=== PATIENT | female | born 1985 | race Caucasian/White ===

== ENCOUNTER 2017-09-23 17:29 | Inpatient (IN) ==
[2017-09-23 18:03] LABS: Bilirubin,Urine Small (Negative); Blood,Urine Negative (Negative); Clarity,Urine Cloudy (Clear); Color,Urine Dark Yellow (Yellow); Glucose,Urine (UA) Normal (Normal); Ketones,Urine Trace mg/dL (Negative); Leukocyte Esterase,Urine Small (Negative); Nitrite,Urine Negative (Negative); PH,Urine 5.5 pH Units (5.0-8.0); Protein,Urine Trace mg/dL (Neg-Trace); Specific Gravity,Urine > 1.030 (1.010-1.025); Urobilinogen,Urine Normal (Normal)
[2017-09-23 18:05] LABS: Amphetamine Screen,Urine Negative ng/mL (Cutoff=1000); Barbiturate Screen,Urine Negative ng/mL (Cutoff=200); Benzodiazepines Screen,Urine Negative ng/mL (Cutoff=200); Cannabinoid Screen,Urine Negative ng/mL (Cutoff = 50); Cocaine Screen,Urine Negative ng/mL (Cutoff= 300); Opiate Screen,Urine Negative ng/mL (Cutoff=300); Phencyclidine Screen,Urine Negative ng/mL (Cutoff=25)
[2017-09-23 18:06] LABS: Squamous Epithelial Cell,Urine Many per lpf (None-Few); WBC,Urine 15-30 per hpf (0-3)
[2017-09-23 18:20] LABS: Bacteria,Urine Moderate per hpf (None-Few); Hyaline Casts,Urine None Seen per lpf (None-Few); Mucus,Urine Many (Few); RBC,Urine 0-3 per hpf (0-3)
--- NOTE | 2017-09-23 18:21 | Emergency Department Note ---
Disposition Clinical Impression: Suicidal ideation Depression Qualifiers: Depression Type: unspecified Qualified Code(s): F32.9 - Major depressive disorder, single episode, unspecified Disposition: Admitted As Inpatient Condition: Good Referrals: NONE,PCP [Primary Care Provider] - Forms: ED Satisfaction Letter Time of Disposition: 21:27 Psych HPI - General Chief Complaint: ED Psychiatric Symptoms Stated Complaint: SI Time Seen by Provider: 09/23/17 18:07 Source: patient Mode of arrival: ambulatory Limitations: no limitations Nursing Notes Reviewed: Yes Vital Signs Reviewed: Yes - History of Present Illness HPI Narrative: 31-year-old with history of depression says she is very depressed feel like she wants to harm herself. Patient has a history of seizures and stopped her seizure medication because her significant other felt that symptoms of aggression and depression were related to meds. Pt complaint: suicidal ideation, feels depressed If medical clearance, reason: psychiatric condition Onset (ago): Just [employer] Duration: constant History of similar episodes: Yes Improves with: none Worsens with: none Context: significant life stressor Alleged intoxication: No Associated Psychiatric Symptoms: depression, suicidal ideation Associated symptoms: Reports: denies other symptoms Traumatic symptoms: denies traumatic injury Treatments prior to arrival: none Self harm or harm to others: admits thoughts of self harm - Related Data Home Medications Medication Instructions Recorded Confirmed Ativan 09/14/17 Topamax 09/14/17 09/14/17 Allergies Allergy/AdvReac Type Severity Reaction Status Date / Time Amoxicillin Allergy Hives Verified 09/23/17 17:34 Cyclobenzaprine Allergy Itching Verified 09/23/17 17:34 [From Flexeril] hydrocodone [From Vicodin] Allergy See Verified 09/23/17 17:34 Comments iodine Allergy Hives Verified 09/23/17 17:34 lorazepam [From Ativan] Allergy Seizure Verified 09/23/17 17:34 Oxycodone [From Percocet] Allergy See Verified 09/23/17 17:34 Comments Penicillins Allergy Anaphylaxis Verified 09/23/17 17:34 povidone-iodine Allergy Hives Verified 09/23/17 17:34 [From Betadine] soap [From Betadine] Allergy Hives Verified 09/23/17 17:34 Raw egg Allergy Hives Uncoded 09/23/17 17:34 All systems ED: reviewed and negative except as stated. Constitutional: Denies: fever, chills, weakness, weight change Eyes: Denies: eye pain, eye discharge, vision change ENT ED: Denies: ear pain, throat pain, dental pain, hearing loss, epistaxis, congestion, dysphagia Cardiovascular: Denies: chest pain, palpitations, dyspnea on exertion, edema, syncope Respiratory: Denies: cough, dyspnea, wheezes, hemoptysis, stridor Gastrointestinal: Denies: abdominal pain, nausea, vomiting, diarrhea, constipation, hematemesis, melena, hematochezia Genitourinary: Denies: dysuria, frequency, hematuria, discharge Musculoskeletal: Denies: back pain, neck pain, arthralgia, myalgia Integumentary: Denies: rash, abrasion, lesions Neurological: Denies: headache, weakness, numbness, paresthesias, confusion, abnormal gait, vertigo Psychiatric: Reports: depression, suicidal thoughts. Denies: anxiety, homicidal thoughts, auditory hallucinations, visual hallucinations Endocrine: Denies: fatigue Hematological/Lymphatic: Denies: easy bleeding, easy bruising Allergic/Immunologic: Denies: facial swelling, urticaria Past Medical History - Past Medical History Medical history: Reports: migraine, seizures Surgical history: Reports: Psychiatric history: Reports: anxiety, ADHD, bipolar, depression, panic disorder , PTSD, prior suicide attempt, previous psychiatric hospitalization, other [employer] history: Reports: bilateral tubal ligation - Social History Smoking Status: Current every day smoker Smokeless Tobacco Status: No Alcohol use: Reports: none Drug use: Reports: none Physical Exam - General Limitations: no limitations General appearance: alert, in no apparent distress - Head Head exam: atraumatic, normocephalic, normal inspection - Eye Eye exam: Present: normal appearance, PERRL, EOMI - ENT ENT exam: normal exam, normal oropharynx, mucous membranes moist - Neck Neck exam: Present: normal inspection, full ROM, trachea midline - Chest Chest inspection: Present: normal inspection, symmetric chest wall rise - Respiratory Respiratory exam: Present: normal lung sounds bilaterally - Cardiovascular Cardiovascular exam: Present: regular rate, normal rhythm, normal heart sounds - Abdominal Exam Abdominal exam: Present: soft, Non-Tender. Absent: tenderness, distention, guarding, rebound, rigidity - Extremities Exam Extremities exam: Present: normal inspection, full ROM. Absent: tenderness, pedal edema - Expanded Lower Extremity Exam Neurovascular/Tendon exam: Absent: motor deficit, sensory deficit, tendon deficit Gait: observed and normal - Back Exam Back exam: Present: normal inspection, full ROM. Absent: tenderness - Neurological Exam Neurological exam: Present: alert, oriented X3 - Psychiatric Psychiatric exam: Present: depressed, agitated, suicidal ideation - Skin Skin exam: Present: warm, dry, intact, normal color Course - Consultations Consultation #1: Consultation with psychiatry who feels the patient should be admitted. Time: 21:26 Vital Signs Temperature 98.4 F 09/23/17 17:31 Pulse Rate 85 09/23/17 17:31 Respiratory Rate 16 09/23/17 17:31 Blood Pressure 119/77 09/23/17 17:31 O2 Sat by Pulse Oximetry 100 09/23/17 17:31 Temperature 98.4 F 09/23/17 17:31 Pulse Rate 85 09/23/17 17:31 Respiratory Rate 16 09/23/17 17:31 Blood Pressure 119/77 09/23/17 17:31 O2 Sat by Pulse Oximetry 100 09/23/17 17:31 Oxygen Delivery Oxygen Delivery Room Air Psych - Lab Data Result diagrams: 09/23/17 18:21 09/23/17 18:21 Lab Results 09/23/17 09/23/17 09/23/17 Range/Units 17:45 17:45 18:21 WBC 10.1 (4.3-11.1) K/mcL RBC 4.15 (3.82-4.97) M/mcL Hgb 12.7 (11.5-15.4) g/dL Hct 38.3 (35.3-44.9) % MCV 92.3 (83.0-100.0) fL MCH 30.6 (28.0-33.3) pg MCHC 33.2 (31.6-35.5) g/dL RDW 12.1 (11.5-14.5) % Plt Count 295 (140-400) K/mcL MPV 9.8 (9.4-12.4) fL Immature Gran % 0.3 (0-4) % Seg Neutrophils % 68.3 % Lymphocytes % 25.1 % Monocytes % 5.5 % Eosinophils % 0.4 % Basophils % 0.4 % Neutrophils # 6.9 (1.6-8.9) K/mcL Lymphocytes # 2.5 (0.6-4.6) K/mcL Monocytes # 0.6 (0.0-1.3) K/mcL Eosinophils # 0.0 (0.0-0.6) K/mcL Basophils # 0.0 (0.0-0.2) K/mcL Sodium (136-145) mEq/L Potassium (3.5-5.1) mEq/L Chloride (98-107) mEq/L Carbon Dioxide (23-29) mEq/L BUN (6-20) mg/dL Creatinine (0.60-1.20) mg/dL Est GFR ( Amer) (> 60) Est GFR (Non-Af Amer) (> 60) BUN/Creatinine Ratio (6-26) Glucose (70-105) mg/dL Calculated Osmolality (280-300) Calcium (8.6-10.3) mg/dL Urine Color Dark Yellow (Yellow) Urine Clarity Cloudy A (Clear) Urine pH 5.5 (5.0-8.0) pH Units Ur Specific [place] > 1.030 H (1.010-1.025) Urine Protein Trace (Neg-Trace) mg/dL Urine Glucose (UA) Normal (Normal) mg/dL Urine Ketones Trace H (Negative) mg/dL Urine Blood Negative (Negative) Urine Nitrite Negative (Negative) Urine Bilirubin Small H (Negative) Urine Urobilinogen Normal (Normal) mg/dL Ur Leukocyte Esterase Small H (Negative) Urine Microscopic RBC 0-3 (0-3) per hpf Urine Microscopic WBC 15-30 H (0-3) per hpf Ur Squamous Epith Cells Many H (None-Few) per lpf Urine Bacteria Moderate H (None-Few) per hpf Hyaline Casts None Seen (None-Few) per lpf Urine Mucus Many H (Few) Ur Culture Indicated? NO. (NO) Salicylates (15.0-30.0) mg/dL Urine Opiates Screen Negative (Ycpdpb=506) ng/mL Acetaminophen (10-30) mcg/mL Ur Barbiturates Screen Negative (Pqoazf=415) ng/mL Ur Phencyclidine Scrn Negative (Cutoff=25) ng/mL Ur Amphetamines Screen Negative (Debgtm=3697) ng/mL U Benzodiazepines Scrn Negative (Rhxjhi=319) ng/mL Urine Cocaine Screen Negative (Cutoff= 300) ng/mL U Marijuana (THC) Screen Negative (Cutoff = 50) ng/mL Ethyl Alcohol (0-10) mg/dL 09/23/17 Range/Units 18:21 WBC (4.3-11.1) K/mcL RBC (3.82-4.97) M/mcL Hgb (11.5-15.4) g/dL Hct (35.3-44.9) % MCV (83.0-100.0) fL MCH (28.0-33.3) pg MCHC (31.6-35.5) g/dL RDW (11.5-14.5) % Plt Count (140-400) K/mcL MPV (9.4-12.4) fL Immature Gran % (0-4) % Seg Neutrophils % % Lymphocytes % % Monocytes % % Eosinophils % % Basophils % % Neutrophils # (1.6-8.9) K/mcL Lymphocytes # (0.6-4.6) K/mcL Monocytes # (0.0-1.3) K/mcL Eosinophils # (0.0-0.6) K/mcL Basophils # (0.0-0.2) K/mcL Sodium 139 (136-145) mEq/L Potassium 3.3 L (3.5-5.1) mEq/L Chloride 107 (98-107) mEq/L Carbon Dioxide 25 (23-29) mEq/L BUN 10 (6-20) mg/dL Creatinine 0.78 (0.60-1.20) mg/dL Est GFR ( Amer) > 60 (> 60) Est GFR (Non-Af Amer) > 60 (> 60) BUN/Creatinine Ratio 13 (6-26) Glucose 82 (70-105) mg/dL Calculated Osmolality 286 (280-300) Calcium 9.3 (8.6-10.3) mg/dL Urine Color (Yellow) Urine Clarity (Clear) Urine pH (5.0-8.0) pH Units Ur Specific [place] (1.010-1.025) Urine Protein (Neg-Trace) mg/dL Urine Glucose (UA) (Normal) mg/dL Urine Ketones (Negative) mg/dL Urine Blood (Negative) Urine Nitrite (Negative) Urine Bilirubin (Negative) Urine Urobilinogen (Normal) mg/dL Ur Leukocyte Esterase (Negative) Urine Microscopic RBC (0-3) per hpf Urine Microscopic WBC (0-3) per hpf Ur Squamous Epith Cells (None-Few) per lpf Urine Bacteria (None-Few) per hpf Hyaline Casts (None-Few) per lpf Urine Mucus (Few) Ur Culture Indicated? (NO) Salicylates < 5.0 L (15.0-30.0) mg/dL Urine Opiates Screen (Iadafp=896) ng/mL Acetaminophen < 1.0 L (10-30) mcg/mL Ur Barbiturates Screen (Iqqimv=627) ng/mL Ur Phencyclidine Scrn (Cutoff=25) ng/mL Ur Amphetamines Screen (Vaoriv=3213) ng/mL U Benzodiazepines Scrn (Zilgfj=362) ng/mL Urine Cocaine Screen (Cutoff= 300) ng/mL U Marijuana (THC) Screen (Cutoff = 50) ng/mL Ethyl Alcohol < 10 (0-10) mg/dL Psychiatric Medical Clearance - Medical Clearance Checklist Does the patient have a NEW psychiatric condition?: No Any abnormalities indicating possible medical illness?: No Any history of medical issues?: No Medical History: Major depressive disorder, single episode (Acute) Abdominal pain (Inactive) Abdominal pain, acute, left lower quadrant (Inactive) Ankle sprain and strain (Inactive) Cephalgia (Inactive) Chronic pain (Inactive) Contusion of right hand (Inactive) Dysfunctional uterine bleeding (Inactive) Earache symptoms in both ears (Inactive) Epileptic seizure (Inactive) Fall due to seizure (Inactive) Generalized seizure (Inactive) Left otitis externa (Inactive) Left otitis media (Inactive) Lumbar radiculopathy (Inactive) Migraine (Inactive) Migraine (Inactive) Migraine (Inactive) Otitis media (Inactive) Ovarian cyst (Inactive) Recurrent seizures (Inactive) Rupture of ovarian cyst (Inactive) Sacral contusion (Inactive) Seizure (Inactive) Seizure (Inactive) Seizure (Inactive) Sinusitis (Inactive) Strain of lumbar region (Inactive) URI (upper respiratory infection) (Inactive) UTI (urinary tract infection) (Inactive) Urinary tract infection (Inactive) Vaginal bleeding (Inactive) No Social History Section defined Any abnormal vital signs prior to transfer?: No Current Vitals: Last Vital Signs Temp 98.4 F 09/23/17 17:31 Pulse 85 09/23/17 17:31 Resp 16 09/23/17 17:31 BP 119/77 09/23/17 17:31 Pulse Ox 100 09/23/17 17:31 Is the patient intoxicated or cognitively impaired?: No Psychiatric Lab Panel: Drug Levels and Toxicity 09/23/17 09/23/17 17:45 18:21 Urine Opiates Screen Negative Acetaminophen < 1.0 L Ur Barbiturates Screen Negative Ur Phencyclidine Scrn Negative Ur Amphetamines Screen Negative U Benzodiazepines Scrn Negative Urine Cocaine Screen Negative U Marijuana (THC) Screen Negative Ethyl Alcohol < 10 Any abnormalities on the physical exam?: No Any abnormal labs?: No Abnormal Labs: Abnormal lab results Potassium 3.3 mEq/L (3.5-5.1) L 09/23/17 18:21 Urine Clarity Cloudy (Clear) A 09/23/17 17:45 Ur Specific [place] > 1.030 (1.010-1.025) H 09/23/17 17:45 Urine Ketones Trace mg/dL (Negative) H 09/23/17 17:45 Urine Bilirubin Small (Negative) H 09/23/17 17:45 Ur Leukocyte Esterase Small (Negative) H 09/23/17 17:45 Urine Microscopic WBC 15-30 per hpf (0-3) H 09/23/17 17:45 Ur Squamous Epith Cells Many per lpf (None-Few) H 09/23/17 17:45 Urine Bacteria Moderate per hpf (None-Few) H 09/23/17 17:45 Urine Mucus Many (Few) H 09/23/17 17:45 Salicylates < 5.0 mg/dL (15.0-30.0) L 09/23/17 18:21 Acetaminophen < 1.0 mcg/mL (10-30) L 09/23/17 18:21 Does the patient require durable medical equiptment?: No Is the patient ambulatory?: Yes Is the patient a fall risk?: No Has the patient been medically cleared?: Yes Any acute medical condition require Tx prior to transfer?: No Statement of Medical Clearance: I have evaluated the patient, reviewed diagnostic information, and certify that the patient's medical condition is sufficiently stable that transfer to the psychiatric unit does not pose a significant risk of deterioration.
[2017-09-23 18:37] LABS: Basophils % 0.4 %; Eosinophils % 0.4 %; Hematocrit 38.3 % (35.3-44.9); Hemoglobin 12.7 g/dL (11.5-15.4); Immature Granulocytes % 0.3 % (0-4); Lymphocytes # 2.5 K/mcL (0.6-4.6); Lymphocytes % 25.1 %; Mean Corpuscular HGB Conc 33.2 g/dL (31.6-35.5); Mean Corpuscular Hemoglobin 30.6 pg (28.0-33.3); Mean Corpuscular Volume 92.3 fL (83.0-100.0); Mean Platelet Volume 9.8 fL (9.4-12.4); Monocytes # 0.6 K/mcL (0.0-1.3); Monocytes % 5.5 %; Neutrophils # 6.9 K/mcL (1.6-8.9); Platelet Count 295 K/mcL (140-400); Red Blood Count 4.15 M/mcL (3.82-4.97); Red Cell Distribution Width 12.1 % (11.5-14.5); Segmented Neutrophils % 68.3 %
[2017-09-23 18:51] LABS: BUN/Creatinine Ratio 13 (6-26); Blood Urea Nitrogen 10 mg/dL (6-20); Calcium 9.3 mg/dL (8.6-10.3); Carbon Dioxide 25 mEq/L (23-29); Chloride 107 mEq/L (98-107); Glucose 82 mg/dL (70-105); Osmolality,Calculated 286 (280-300); Potassium 3.3 mEq/L (3.5-5.1); Sodium 139 mEq/L (136-145); eGFR For African Americans > 60 (> 60); eGFR For Non-African Americans > 60 (> 60)
[2017-09-23 18:57] LABS: Acetaminophen < 1.0 mcg/mL (10-30); Ethanol < 10 mg/dL (0-10); Salicylate < 5.0 mg/dL (15.0-30.0)
[2017-09-23] MEDS ORDERED: traZODone 50 MG TABLET PO PRN (21:56)
[2017-09-23] MEDS ORDERED: Mag Hydrox/Al Hydrox/Simeth 30 ML UDC PO PRN (21:56)
[2017-09-23] MEDS ORDERED: MOM Conc 10 ML UD.LIQ PO PRN (21:56)
[2017-09-23] MEDS ORDERED: Haloperidol Lactate 5 MG/ML VIAL IM PRN (21:56)
[2017-09-23] MEDS ORDERED: hydrOXYzine pamoate 25 MG CAPSULE PO PRN (21:56)
[2017-09-23] MEDS: Ibuprofen 400 MG TABLET PO PRN (23:30)
[2017-09-24] MEDS: Nicotine 14 MG PATCH.TD24 TD SCH (09:53)
[2017-09-24] MEDS: levETIRAcetam 250 MG TABLET PO SCH ×2 (10:36→21:12)
[2017-09-24] MEDS: OXcarbazepine 150 MG TABLET PO SCH ×2 (10:37→21:10)
--- NOTE | 2017-09-24 15:09 | Psychiatry History & Physical ---
Date of Encounter: 09/24/17 Time of Encounter: 15:03 History of Present Illness Patient Stated Chief Complaint: suicidal ideation Medicare Admission Attestation: For traditional Medicare patients the provided hospital inpatient services are reasonable and necessary and in the case of services not specified as inpatient -only under 42 CFR 419.22 (n), that they are appropriately provided as inpatient services in accordance 42 CFR 412.3. For Critical Access Hospital the patient may reasonably be expected to be discharged or transferred to a hospital within 96 hours after admission to the Critical Access Hospital. Admitted From: Home Plans for Post Hospital Care: Home History of Present Illness: Ms. Ibrahim is a 31 year old female who was admitted secondary to SI. Client reports she has been given multiple diagnoses in the past including Bipolar Disorder, PTSD, ADHD. Has a history of post depression, bulemia, anorexia, and past suicide attempts. Previously linked with Dr. Pereira but has not been seen and no meds since he left the practice. Discussed options and client is interested in being placed back on Abilify. Had success with this medication in the past. States she is already feeling better just being here. Also recognizing she has a two year old that needs her. Denying SI today. Wants relinked with services and thinks she will be fine to follow up as an outpatient. Seems bright today. Will start Abilify, verify safety with , schedule appointments and plan for discharge as early as tomorrow. Client has no substance abuse issues and is generally physically healthy except for a history of seizures. Client is not currently on antiepileptics and seizures may be pseudoseizures as opposed to a seizure disorder. Past Med Surg Social Fam HX - Past Medical History Medical history: migraine, seizures - Past Psychiatric History Psychiatric history: Reports: prior suicide attempt, previous psychiatric hospitalization Family psychiatric history: Unknown Family History of Suicide: Unknown - Past Surgical History Surgical History: - Social History Smoking Status: Current every day smoker Smokeless Tobacco Status: No Alcohol use: none Drug use: none Medications & Allergies LevETIRAcetam [Keppra] 500 mg PO BID 09/23/17 [History] OXcarbazepine [Oxcarbazepine] 1,200 mg PO BID 09/23/17 [History] 3 Allergy/AdvReac Type Severity Reaction Status Date / Time Amoxicillin Allergy Hives Verified 09/23/17 17:34 Cyclobenzaprine Allergy Itching Verified 09/23/17 17:34 [From Flexeril] hydrocodone [From Vicodin] Allergy See Verified 09/23/17 17:34 Comments iodine Allergy Hives Verified 09/23/17 17:34 lorazepam [From Ativan] Allergy Seizure Verified 09/23/17 17:34 Oxycodone [From Percocet] Allergy See Verified 09/23/17 17:34 Comments Penicillins Allergy Anaphylaxis Verified 09/23/17 17:34 povidone-iodine Allergy Hives Verified 09/23/17 17:34 [From Betadine] soap [From Betadine] Allergy Hives Verified 09/23/17 17:34 Raw egg Allergy Hives Uncoded 09/23/17 17:34 Review of Systems Constitutional: Denies: fever, chills, weakness, weight change Eyes: Denies: eye pain, vision change Ears, Nose, Throat: Denies: ear pain, throat pain, dental pain, hearing loss, congestion Cardiovascular: Denies: chest pain, palpitations, dyspnea on exertion Respiratory: Denies: cough, dyspnea, wheezes Gastrointestinal: Denies: abdominal pain, nausea, vomiting, diarrhea, constipation Genitourinary male: Denies: urgency, dysuria, frequency, genital lesions Genitourinary female: Denies: urgency, dysuria, frequency, abnormal menses, dyspareunia Musculoskeletal: Denies: joint swelling, joint pain Integumentary: Denies: rash, lesions, pruritus Neurological: Denies: headache, weakness, numbness, memory loss Endocrine: Denies: fatigue, heat or cold intolerance Hematologic/Lymphatic: Denies: easy bruising, lymphadenopathy Allergic/Immunologic: Denies: urticaria, itchy eyes Mental Status Exam Patient orientation: Yes Person, Yes Time, Yes Place Level of alertness: Alert Patient appearance: Appropriate, Well Groomed Behavior: calm, cooperative Psychomotor activity: Normal Eye contact: Maintains Eye Contact Mood description: Euthymic/stable Affect description: congruent with mood, full range Speech pattern: Normal rate, Normal rhythm, Normal tone Speech volume: Normal Thought process: Linear, Goal Oriented Thought content: No Suicidal ideation, No Homicidal ideation, No Overt delusions Perceptual disturbances: No Auditory hallucinations, No Visual hallucinations Attention span: Capable of Focused Attention Memory description: Grossly Intact Patient reliability: Reliable Historian Intelligence estimate: Average Judgment: Limited Insight: Partial Exam - HEENT Head exam IM: Present: atraumatic Eye exam IM: Present: EOMI ENT exam IM: Present: mucous membranes moist - Neurological Neurological exam IM: Present: alert, oriented X3 - Respiratory Respiratory exam IM: Present: CTAB - GI/Abdominal GI/Abdominal exam IM: Present: normal bowel sounds - Extremities Extremities exam IM: Present: full ROM - Skin Skin exam IM: Present: normal color Results - Vital Signs Vital signs: Temp Pulse Resp BP Pulse Ox 97.8 F 87 18 97/68 100 09/24/17 09:00 09/24/17 09:00 09/24/17 09:00 09/24/17 09:00 09/23/17 17:31 - Labs Labs: Laboratory Last Values WBC 10.1 K/mcL (4.3-11.1) 09/23/17 18:21 RBC 4.15 M/mcL (3.82-4.97) 09/23/17 18:21 Hgb 12.7 g/dL (11.5-15.4) 09/23/17 18:21 Hct 38.3 % (35.3-44.9) 09/23/17 18:21 MCV 92.3 fL (83.0-100.0) 09/23/17 18:21 MCH 30.6 pg (28.0-33.3) 09/23/17 18:21 MCHC 33.2 g/dL (31.6-35.5) 09/23/17 18:21 RDW 12.1 % (11.5-14.5) 09/23/17 18:21 Plt Count 295 K/mcL (140-400) 09/23/17 18:21 MPV 9.8 fL (9.4-12.4) 09/23/17 18:21 Immature Gran % 0.3 % (0-4) 09/23/17 18:21 Seg Neutrophils % 68.3 % 09/23/17 18:21 Lymphocytes % 25.1 % 09/23/17 18:21 Monocytes % 5.5 % 09/23/17 18:21 Eosinophils % 0.4 % 09/23/17 18:21 Basophils % 0.4 % 09/23/17 18:21 Neutrophils # 6.9 K/mcL (1.6-8.9) 09/23/17 18:21 Lymphocytes # 2.5 K/mcL (0.6-4.6) 09/23/17 18:21 Monocytes # 0.6 K/mcL (0.0-1.3) 09/23/17 18:21 Eosinophils # 0.0 K/mcL (0.0-0.6) 09/23/17 18:21 Basophils # 0.0 K/mcL (0.0-0.2) 09/23/17 18:21 Sodium 139 mEq/L (136-145) 09/23/17 18:21 Potassium 3.3 mEq/L (3.5-5.1) L 09/23/17 18:21 Chloride 107 mEq/L (98-107) 09/23/17 18:21 Carbon Dioxide 25 mEq/L (23-29) 09/23/17 18:21 BUN 10 mg/dL (6-20) 09/23/17 18:21 Creatinine 0.78 mg/dL (0.60-1.20) 09/23/17 18:21 Est GFR ( Amer) > 60 (> 60) 09/23/17 18:21 Est GFR (Non-Af Amer) > 60 (> 60) 09/23/17 18:21 BUN/Creatinine Ratio 13 (6-26) 09/23/17 18:21 Glucose 82 mg/dL (70-105) 09/23/17 18:21 Calculated Osmolality 286 (280-300) 09/23/17 18:21 Calcium 9.3 mg/dL (8.6-10.3) 09/23/17 18:21 Urine Color Dark Yellow (Yellow) 09/23/17 17:45 Urine Clarity Cloudy (Clear) A 09/23/17 17:45 Urine pH 5.5 pH Units (5.0-8.0) 09/23/17 17:45 Ur Specific [place] > 1.030 (1.010-1.025) H 09/23/17 17:45 Urine Protein Trace mg/dL (Neg-Trace) 09/23/17 17:45 Urine Glucose (UA) Normal mg/dL (Normal) 09/23/17 17:45 Urine Ketones Trace mg/dL (Negative) H 09/23/17 17:45 Urine Blood Negative (Negative) 09/23/17 17:45 Urine Nitrite Negative (Negative) 09/23/17 17:45 Urine Bilirubin Small (Negative) H 09/23/17 17:45 Urine Urobilinogen Normal mg/dL (Normal) 09/23/17 17:45 Ur Leukocyte Esterase Small (Negative) H 18 17:45 Urine Microscopic RBC 0-3 per hpf (0-3) 09/23/17 17:45 Urine Microscopic WBC 15-30 per hpf (0-3) H 09/23/17 17:45 Ur Squamous Epith Cells Many per lpf (None-Few) H 09/23/17 17:45 Urine Bacteria Moderate per hpf (None-Few) H 09/23/17 17:45 Hyaline Casts None Seen per lpf (None-Few) 09/23/17 17:45 Urine Mucus Many (Few) H 09/23/17 17:45 Ur Culture Indicated? NO. (NO) 09/23/17 17:45 Salicylates < 5.0 mg/dL (15.0-30.0) L 09/23/17 18:21 Urine Opiates Screen Negative ng/mL (Purwdj=008) 09/23/17 17:45 Acetaminophen < 1.0 mcg/mL (10-30) L 09/23/17 18:21 Ur Barbiturates Screen Negative ng/mL (Tsbyeq=879) 09/23/17 17:45 Ur Phencyclidine Scrn Negative ng/mL (Cutoff=25) 09/23/17 17:45 Ur Amphetamines Screen Negative ng/mL (Rlsmmi=1166) 09/23/17 17:45 U Benzodiazepines Scrn Negative ng/mL (Mdgnrb=033) 09/23/17 17:45 Urine Cocaine Screen Negative ng/mL (Cutoff= 300) 09/23/17 17:45 U Marijuana (THC) Screen Negative ng/mL (Cutoff = 50) 09/23/17 17:45 Ethyl Alcohol < 10 mg/dL (0-10) 18 18:21 Assessment and Plan (1) Major depress dis, severe Current visit: Yes Status: Acute Plan: Admit inpatient for safety and stabilization, Close observation, Suicide Precautions per unit protocol, Encourage participation in unit milieu, Group Therapy, Monitor sleep, Monitor appetite Risks, benefits, side effects, alternatives discussed w/pt: Yes Patient agreeable to treatment: Yes Plans for Post Hospital Care: Home Estimated Length of Stay (Days): 3
[2017-09-24] MEDS: ARIPiprazole 5 MG TABLET PO SCH (15:59)
[2017-09-24] MEDS: Ibuprofen 400 MG TABLET PO PRN (22:08)
[2017-09-25] MEDS: ARIPiprazole 5 MG TABLET PO SCH (09:17)
[2017-09-25] MEDS: levETIRAcetam 250 MG TABLET PO SCH (09:17)
[2017-09-25] MEDS: OXcarbazepine 150 MG TABLET PO SCH (09:18)
[2017-09-25] MEDS: Nicotine 14 MG PATCH.TD24 TD SCH (09:19)
[2017-09-25 10:12] VITALS: BP 95/71
[2017-09-25] MEDS ORDERED: *HR* LORazepam 1 MG TABLET PO ONE (11:40)
--- NOTE | 2017-09-25 11:56 | Discharge Summary ---
Date of Encounter: 09/25/17 Time of Encounter: 11:54 Diagnosis - Discharge Diagnosis (1) Major depress dis, severe Status: Acute Medications - Discharge Medications Prescriptions: ARIPiprazole [Abilify] 5 mg PO QAM #14 tablet LevETIRAcetam [Keppra] 500 mg PO BID 09/23/17 [History] OXcarbazepine [Oxcarbazepine] 1,200 mg PO BID 09/23/17 [History] ARIPiprazole [Abilify] 5 mg PO QAM #14 tablet 09/25/17 [Rx] 3 Allergy/AdvReac Type Severity Reaction Status Date / Time Amoxicillin Allergy Hives Verified 09/23/17 17:34 Cyclobenzaprine Allergy Itching Verified 09/23/17 17:34 [From Flexeril] hydrocodone [From Vicodin] Allergy See Verified 09/23/17 17:34 Comments iodine Allergy Hives Verified 09/23/17 17:34 Oxycodone [From Percocet] Allergy See Verified 09/23/17 17:34 Comments Penicillins Allergy Anaphylaxis Verified 09/23/17 17:34 povidone-iodine Allergy Hives Verified 09/23/17 17:34 [From Betadine] soap [From Betadine] Allergy Hives Verified 09/23/17 17:34 Raw egg Allergy Hives Uncoded 09/23/17 17:34 Provider Date of admission: 09/23/17 21:32 Primary care physician: PCP NONE Discharging clinician: Henrietta Wick Assessment and Plan - Patient/Caregiver Discharge Instructions Activity: resume usual activities as tolerated Diet: regular diet - Follow up Plan Follow up with: [facility] [Outside] - 10/03/17 10:30 am (The above appointment is with Casi Manrique, counselor at [facility]. Your first appointment will be very thorough and the total appointment time will take between two and three hours. You will be completing paperwork, meeting with a counselor and a nurse, and developing a treatment plan. You will receive follow- up appointments for on-going services , which could include community support, mental health and substance abuse counseling, groups/partial hospitalization programming, medication assisted treatment, and psychiatric medication management. Please bring the following with you to your first visit to the clinic: 1) proof of household income (two consecutive pay stubs, social security award letter, bank statement, statement letter from [facility], child support statement, IRS 1040 or W2 form, or a statement from the person who financially supports you stating they help provide for your basic needs), 2) proof of residency (drivers license, a piece of mail showing your address, a statement from person you live with verifying you live at their address), 3) your social security card, 4) photo ID, and 5) your insurance card (if you have commercial insurance you must call to obtain a prior authorization number before you arrive to your first appointment). If you do not bring these items, you will not be seen.) Lesly Barajas [Advanced Practice Nurse] - 10/09/17 9:00 am (The above appointment is with Lesly Barajas CNP, at [facility]. This appointment is to establish you with a primary care provider. Your needs for medication and/or Vivitrol will be assessed and treated as indicated as well. Please arrive 15 minutes early to complete paperwork. Please bring your insurance card, photo ID and list of current medications to your first appointment. The above appointment(s) reflects first availability. You may contact the office regularly to check for cancellations that may allow you to be seen sooner.) Functional capacity at discharge: independent ambulation Overall status at discharge: Stable Disposition: Home, Self-Care Hospital Course Hospital course: Ms. Ibrahim is a 31 year old female who was admitted secondary to SI. She responded quickly to being in a supportive environment. She was also started on Abilify with positive results. On the unit she was bright, social, and engaged. She slept and ate well. She was future oriented and talked about wanting to see her daughter. She consistently denied SI. She was re-linked with services and set up with mental health appointments prior to discharge. Staff spoke to her fiancee who did not have safety concerns and staff were able to safety plan with him. On the day of discharge client denied SI/HI/AH/VH. - Time Spent with Patient Total time spent providing and/or coordinating discharge services: Quality - Multiple Antipsychotics Patient discharged on 2 or more antipsychotic medications: No Procedures - Procedures Procedures: Medication Management, Crisis Stabilization, Supportive Therapy, Group Therapy Mental Status Exam - Mental Status Exam Patient orientation: Yes Person, Yes Time, Yes Place Level of alertness: Alert Patient appearance: Appropriate, Well Groomed Behavior: calm, cooperative Psychomotor activity: Normal Eye contact: Maintains Eye Contact Mood description: Euthymic/stable Affect description: congruent with mood, full range Speech pattern: Normal rate, Normal rhythm, Normal tone Speech Volume: Normal Thought process: Linear, Goal Oriented Thought Content: No Suicidal ideation, No Homicidal ideation, No Overt delusions Perceptual Disturbances: No Auditory hallucinations, No Visual hallucinations Judgment: Fair Insight: Partial
== END 2017-09-25 13:15 | disposition home or self-care (01) | DRG 751 ==
LOC: EMEROO 17:29 → 1ANU 21:32
PROVIDERS: ADMIT Psychiatry & Neurology Psychiatry; ATTEND Psychiatry & Neurology Psychiatry

== ENCOUNTER 2018-03-26 17:01 | Inpatient (IN) ==
--- NOTE | 2018-03-26 17:22 | Emergency Department Note ---
Disposition Clinical Impression: Suicidal ideation Disposition: Still a Patient Condition: Good Referrals: NONE,PCP [Primary Care Provider] - Forms: ED Satisfaction Letter Time of Disposition: 18:43 Psych HPI - General Chief Complaint: ED Psychiatric Symptoms Stated Complaint: SI; hasn't eaten for 4 days Time Seen by Provider: 03/26/18 17:11 Source: patient Mode of arrival: ambulatory Limitations: no limitations Nursing Notes Reviewed: Yes Vital Signs Reviewed: Yes - History of Present Illness HPI Narrative: Patient is a 32-year-old female with past medical history of anxiety, depression , multiple personalities disorder, previous admission to for suicidal ideation 2. She presents today due to depression, suicidal ideation. Patient states that she is having issues with her current partner. They are currently , she states that she has been very depressed for the past month or 2. She stopped taking her Abilify that she is prescribed for depression. She states that she has lost a little with, "just wants to ." She has no specific plan. She states that she would start taking her medication again if her partner decided to take her back. Denies any drug, alcohol use, any self- harm. Denies any homicidal ideation, visual hallucinations. She does admit to auditory hallucinations that she states are chronic and unchanged. She also states that she has not eaten in 4 days due to "just not feeling like and not wanting to live anymore." - Related Data Home Medications Medication Instructions Recorded Confirmed LevETIRAcetam [Keppra] 1,000 mg PO BID 09/23/17 11/13/17 OXcarbazepine [Oxcarbazepine] 900 mg PO BID 09/23/17 11/13/17 LORazepam [Ativan] 1 mg PO AD PRN 11/13/17 11/13/17 Previous Rx's Medication Instructions Recorded ARIPiprazole [Abilify] 5 mg PO QAM #14 tablet 09/25/17 HYDROmorphone [Dilaudid] 2 mg PO Q4HR PRN 7 Days #30 tablet 11/13/17 Ibuprofen [Motrin] 600 mg PO Q6HR PRN #40 tab 11/13/17 Cyclobenzaprine [Flexeril] 10 mg PO HS #15 tablet 01/13/18 Allergies Allergy/AdvReac Type Severity Reaction Status Date / Time Amoxicillin Allergy Anaphylaxis Verified 11/13/17 09:39 hazelnut Allergy Hives Verified 11/13/17 09:39 hydrocodone [From Vicodin] Allergy Vomiting Verified 11/13/17 09:39 iodine Allergy Rash Verified 11/13/17 09:39 iron Allergy See Verified 11/13/17 09:39 Comments Oxycodone [From Percocet] Allergy Hives Verified 11/13/17 09:39 Penicillins Allergy Anaphylaxis Verified 11/13/17 09:39 povidone-iodine Allergy Hives Verified 11/13/17 09:39 [From Betadine] soap [From Betadine] Allergy Hives Verified 11/13/17 09:39 Sulfa (Sulfonamide Allergy Hives Verified 11/13/17 09:39 Antibiotics) codeine AdvReac Vomiting Verified 11/13/17 09:39 Cyclobenzaprine AdvReac Agitated Verified 11/13/17 09:39 [From Flexeril] diazepam [From Valium] AdvReac See Verified 11/13/17 09:39 Comments quetiapine [From Seroquel] AdvReac Seizure Verified 11/13/17 09:39 dinh beans Allergy Swelling Uncoded 11/13/17 09:39 of Lip/Tongue/Throat Raw egg Allergy Anaphylaxis Uncoded 11/13/17 09:39 All systems ED: reviewed and negative except as stated. Constitutional: Denies: fever Cardiovascular: Denies: chest pain, palpitations Respiratory: Denies: cough, dyspnea, wheezes, hemoptysis Gastrointestinal: Denies: abdominal pain Genitourinary: Denies: urgency, dysuria Musculoskeletal: Denies: back pain Integumentary: Denies: rash Neurological: Denies: headache, weakness, numbness, paresthesias Past Medical History - Past Medical History Attestation: Yes The following information was validated with the patient. 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 - Social History Smoking Status: Current every day smoker Smokeless Tobacco Status: No Alcohol use: Reports: heavy Drug use: Reports: none Physical Exam - General General appearance: alert, in no apparent distress - Head Head exam: atraumatic, normocephalic, normal inspection - Eye Eye exam: Present: normal appearance, PERRL, EOMI - ENT ENT exam: normal exam, normal oropharynx, mucous membranes moist - Neck Neck exam: Present: normal inspection, full ROM, trachea midline - Chest Chest inspection: Present: normal inspection, symmetric chest wall rise - Respiratory Respiratory exam: Present: normal lung sounds bilaterally - Cardiovascular Cardiovascular exam: Present: regular rate, normal rhythm, normal heart sounds - Abdominal Exam Abdominal exam: Present: soft, Non-Tender. Absent: tenderness, distention, guarding, rebound, rigidity - Extremities Exam Extremities exam: Present: normal inspection, full ROM. Absent: tenderness, pedal edema - Neurological Exam Neurological exam: Present: alert, oriented X3 - Psychiatric Psychiatric exam: Present: depressed, flat affect, suicidal ideation, other ( cying). Absent: homicidal ideation - Skin Skin exam: Present: warm, dry, intact, normal color Course Course Narrative: Vital stable. Physical exam benign. Medical clearance labs, we will have 1A evaluate after medical clearance. [place] slip signed and on the chart. Will sign out to night team for further care and dispo, Dr. Urbina. Vital Signs Temperature 98.0 F 03/26/18 17:08 Pulse Rate 95 03/26/18 17:08 Respiratory Rate 16 03/26/18 17:08 Blood Pressure 104/64 03/26/18 17:08 O2 Sat by Pulse Oximetry 98 03/26/18 17:08 Temperature 98.0 F 03/26/18 17:18 Pulse Rate 95 03/26/18 17:18 Respiratory Rate 16 03/26/18 17:18 Blood Pressure 104/64 03/26/18 17:18 O2 Sat by Pulse Oximetry 98 03/26/18 17:18 Oxygen Delivery Oxygen Delivery Room Air Psych - MDM Narrative Medical decision making narrative: Vital stable. Physical exam benign. Medical clearance labs, we will have 1A evaluate after medical clearance. [place] slip signed and on the chart. Will sign out to night team for further care and dispo, Dr. Urbina. - Medical Records Medical records reviewed: Yes I reviewed the patient's medical records. - Lab Data Lab results reviewed: Yes I reviewed the patient's lab results. Result diagrams: 03/26/18 17:26 03/26/18 17:26 Lab Results 03/26/18 03/26/18 03/26/18 Range/Units 17:26 17:26 17:35 WBC 10.3 (4.3-11.1) K/mcL RBC 4.49 (3.82-4.97) M/mcL Hgb 14.5 (11.5-15.4) g/dL Hct 42.2 (35.3-44.9) % MCV 94.0 (83.0-100.0) fL MCH 32.3 (28.0-33.3) pg MCHC 34.4 (31.6-35.5) g/dL RDW 12.7 (11.5-14.5) % Plt Count 271 (140-400) K/mcL MPV 10.2 (9.4-12.4) fL Immature Gran % 0.3 (0-4) % Seg Neutrophils % 65.2 % Lymphocytes % 27.3 % Monocytes % 5.4 % Eosinophils % 1.3 % Basophils % 0.5 % Neutrophils # 6.7 (1.6-8.9) K/mcL Lymphocytes # 2.8 (0.6-4.6) K/mcL Monocytes # 0.6 (0.0-1.3) K/mcL Eosinophils # 0.1 (0.0-0.6) K/mcL Basophils # 0.1 (0.0-0.2) K/mcL Sodium 140 (136-145) mEq/L Potassium 4.0 (3.5-5.1) mEq/L Chloride 108 H (98-107) mEq/L Carbon Dioxide 27 (23-29) mEq/L BUN 11 (6-20) mg/dL Creatinine 0.87 (0.60-1.20) mg/dL Est GFR ( Amer) > 60 (> 60) Est GFR (Non-Af Amer) > 60 (> 60) BUN/Creatinine Ratio 13 (6-26) Glucose 96 (70-105) mg/dL Calculated Osmolality 289 (280-300) Calcium 9.5 (8.6-10.3) mg/dL Urine Color Dark Yellow (Yellow) Urine Clarity Clear (Clear) Urine pH 5.5 (5.0-8.0) pH Units Ur Specific [place] 1.028 H (1.010-1.025) Urine Protein 100 H (Neg-Trace) mg/dL Urine Glucose (UA) Normal (Normal) mg/dL Urine Ketones Trace H (Negative) mg/dL Urine Blood Trace H (Negative) Urine Nitrite Negative (Negative) Urine Bilirubin Small H (Negative) Urine Urobilinogen Normal (Normal) mg/dL Ur Leukocyte Esterase Small H (Negative) Urine Microscopic RBC 0-3 (0-3) per hpf Urine Microscopic WBC 5-15 H (0-3) per hpf Ur Squamous Epith Cells Many H (None-Few) per lpf Urine Bacteria Few (None-Few) per hpf Hyaline Casts None Seen (None-Few) per lpf Urine Test (Negative) Salicylates < 2.5 L (15.0-30.0) mg/dL Urine Opiates Screen (Ttmzgh=666) ng/mL Acetaminophen < 10 L (10-20) mcg/mL Ur Barbiturates Screen (Mzqawf=836) ng/mL Ur Phencyclidine Scrn (Cutoff=25) ng/mL Ur Amphetamines Screen (Fszziw=1014) ng/mL U Benzodiazepines Scrn (Fjanrb=245) ng/mL Urine Cocaine Screen (Cutoff= 300) ng/mL U Marijuana (THC) Screen (Cutoff = 50) ng/mL Ur Drug Screen Interp Ethyl Alcohol 11 H (Less than 10) mg/dL 03/26/18 03/26/18 Range/Units 17:35 17:35 WBC (4.3-11.1) K/mcL RBC (3.82-4.97) M/mcL Hgb (11.5-15.4) g/dL Hct (35.3-44.9) % MCV (83.0-100.0) fL MCH (28.0-33.3) pg MCHC (31.6-35.5) g/dL RDW (11.5-14.5) % Plt Count (140-400) K/mcL MPV (9.4-12.4) fL Immature Gran % (0-4) % Seg Neutrophils % % Lymphocytes % % Monocytes % % Eosinophils % % Basophils % % Neutrophils # (1.6-8.9) K/mcL Lymphocytes # (0.6-4.6) K/mcL Monocytes # (0.0-1.3) K/mcL Eosinophils # (0.0-0.6) K/mcL Basophils # (0.0-0.2) K/mcL Sodium (136-145) mEq/L Potassium (3.5-5.1) mEq/L Chloride (98-107) mEq/L Carbon Dioxide (23-29) mEq/L BUN (6-20) mg/dL Creatinine (0.60-1.20) mg/dL Est GFR ( Amer) (> 60) Est GFR (Non-Af Amer) (> 60) BUN/Creatinine Ratio (6-26) Glucose (70-105) mg/dL Calculated Osmolality (280-300) Calcium (8.6-10.3) mg/dL Urine Color (Yellow) Urine Clarity (Clear) Urine pH (5.0-8.0) pH Units Ur Specific [place] (1.010-1.025) Urine Protein (Neg-Trace) mg/dL Urine Glucose (UA) (Normal) mg/dL Urine Ketones (Negative) mg/dL Urine Blood (Negative) Urine Nitrite (Negative) Urine Bilirubin (Negative) Urine Urobilinogen (Normal) mg/dL Ur Leukocyte Esterase (Negative) Urine Microscopic RBC (0-3) per hpf Urine Microscopic WBC (0-3) per hpf Ur Squamous Epith Cells (None-Few) per lpf Urine Bacteria (None-Few) per hpf Hyaline Casts (None-Few) per lpf Urine Test Negative (Negative) Salicylates (15.0-30.0) mg/dL Urine Opiates Screen Negative (Vluiax=665) ng/mL Acetaminophen (10-20) mcg/mL Ur Barbiturates Screen Negative (Fhmnps=771) ng/mL Ur Phencyclidine Scrn Negative (Cutoff=25) ng/mL Ur Amphetamines Screen Negative (Vpcway=5548) ng/mL U Benzodiazepines Scrn Negative (Wjydgo=025) ng/mL Urine Cocaine Screen Negative (Cutoff= 300) ng/mL U Marijuana (THC) Screen Negative (Cutoff = 50) ng/mL Ur Drug Screen Interp See Below Ethyl Alcohol (Less than 10) mg/dL Psychiatric Medical Clearance - Medical Clearance Checklist Medical History: No Social History Section defined Current Vitals: Last Vital Signs Temp 98.0 F 03/26/18 17:18 Pulse 95 03/26/18 17:18 Resp 16 03/26/18 17:18 BP 104/64 03/26/18 17:18 Pulse Ox 98 03/26/18 17:18 Psychiatric Lab Panel: Drug Levels and Toxicity 03/26/18 03/26/18 17:26 17:35 Urine Opiates Screen Negative Acetaminophen < 10 L Ur Barbiturates Screen Negative Ur Phencyclidine Scrn Negative Ur Amphetamines Screen Negative U Benzodiazepines Scrn Negative Urine Cocaine Screen Negative U Marijuana (THC) Screen Negative Ethyl Alcohol 11 H Abnormal Labs: Abnormal lab results Chloride 108 mEq/L (98-107) H 03/26/18 17:26 Ur Specific [place] 1.028 (1.010-1.025) H 03/26/18 17:35 Urine Protein 100 mg/dL (Neg-Trace) H 03/26/18 17:35 Urine Ketones Trace mg/dL (Negative) H 03/26/18 17:35 Urine Blood Trace (Negative) H 03/26/18 17:35 Urine Bilirubin Small (Negative) H 03/26/18 17:35 Ur Leukocyte Esterase Small (Negative) H 03/26/18 17:35 Urine Microscopic WBC 5-15 per hpf (0-3) H 03/26/18 17:35 Ur Squamous Epith Cells Many per lpf (None-Few) H 03/26/18 17:35 Salicylates < 2.5 mg/dL (15.0-30.0) L 03/26/18 17:26 Acetaminophen < 10 mcg/mL (10-20) L 03/26/18 17:26 Ethyl Alcohol 11 mg/dL (Less than 10) H 03/26/18 17:26 Statement of Medical Clearance: I have evaluated the patient, reviewed diagnostic information, and certify that the patient's medical condition is sufficiently stable that transfer to the psychiatric unit does not pose a significant risk of deterioration. S.B.A.R. - S.B.A.R. Situation: Demographics, MOA Background: Presenting Complaint, Relevant PMH, Meds, & Allergies Assessment: Vital Signs, Course and respsone to treatment, Exam Concerns, Patient/Family Expectation, Pertinant Lab Results, Outstanding Labs Recommendation: Barrier(s) to disposition, Recommendation based on pending studies, treatments, or consults S.B.A.R. Report Given to: Dr. Urbina
--- NOTE | 2018-03-26 17:32 | Emergency Department Note ---
Disposition Clinical Impression: Suicidal ideation Disposition: Still a Patient Condition: Good Referrals: NONE,PCP [Primary Care Provider] - Forms: ED Satisfaction Letter Time of Disposition: 18:39 General Adult HPI - General Chief complaint: ED Psychiatric Symptoms Stated complaint: SI; hasn't eaten for 4 days Time Seen by Provider: 03/26/18 17:11 Source: patient Mode of arrival: ambulatory Limitations: no limitations - History of Present Illness Pain Scale: 0 - Related Data Home Medications Medication Instructions Recorded Confirmed LevETIRAcetam [Keppra] 1,000 mg PO BID 09/23/17 11/13/17 OXcarbazepine [Oxcarbazepine] 900 mg PO BID 09/23/17 11/13/17 LORazepam [Ativan] 1 mg PO AD PRN 11/13/17 11/13/17 Previous Rx's Medication Instructions Recorded ARIPiprazole [Abilify] 5 mg PO QAM #14 tablet 09/25/17 HYDROmorphone [Dilaudid] 2 mg PO Q4HR PRN 7 Days #30 tablet 11/13/17 Ibuprofen [Motrin] 600 mg PO Q6HR PRN #40 tab 11/13/17 Cyclobenzaprine [Flexeril] 10 mg PO HS #15 tablet 01/13/18 Allergies Allergy/AdvReac Type Severity Reaction Status Date / Time Amoxicillin Allergy Anaphylaxis Verified 11/13/17 09:39 hazelnut Allergy Hives Verified 11/13/17 09:39 hydrocodone [From Vicodin] Allergy Vomiting Verified 11/13/17 09:39 iodine Allergy Rash Verified 11/13/17 09:39 iron Allergy See Verified 11/13/17 09:39 Comments Oxycodone [From Percocet] Allergy Hives Verified 11/13/17 09:39 Penicillins Allergy Anaphylaxis Verified 11/13/17 09:39 povidone-iodine Allergy Hives Verified 11/13/17 09:39 [From Betadine] soap [From Betadine] Allergy Hives Verified 11/13/17 09:39 Sulfa (Sulfonamide Allergy Hives Verified 11/13/17 09:39 Antibiotics) codeine AdvReac Vomiting Verified 11/13/17 09:39 Cyclobenzaprine AdvReac Agitated Verified 11/13/17 09:39 [From Flexeril] diazepam [From Valium] AdvReac See Verified 11/13/17 09:39 Comments quetiapine [From Seroquel] AdvReac Seizure Verified 11/13/17 09:39 dinh beans Allergy Swelling Uncoded 11/13/17 09:39 of Lip/Tongue/Throat Raw egg Allergy Anaphylaxis Uncoded 11/13/17 09:39 Constitutional: Denies: fever Cardiovascular: Denies: chest pain, palpitations Respiratory: Denies: cough, dyspnea, wheezes, hemoptysis Gastrointestinal: Denies: abdominal pain Genitourinary: Denies: urgency, dysuria Musculoskeletal: Denies: back pain Integumentary: Denies: rash Neurological: Denies: headache, weakness, numbness, paresthesias Past Medical History - Past Medical History Medical history: Reports: no medical history Surgical history: Reports: Psychiatric history: Reports: prior suicide attempt, previous psychiatric hospitalization [employer] history: Reports: bilateral tubal ligation - Social History Smoking Status: Current every day smoker Smokeless Tobacco Status: No Alcohol use: Reports: heavy Drug use: Reports: none Physical Exam - General Limitations: no limitations General appearance: alert, in no apparent distress Course Vital Signs Temperature 98.0 F 03/26/18 17:08 Pulse Rate 95 03/26/18 17:08 Respiratory Rate 16 03/26/18 17:08 Blood Pressure 104/64 03/26/18 17:08 O2 Sat by Pulse Oximetry 98 03/26/18 17:08 Temperature 98.0 F 03/26/18 17:18 Pulse Rate 95 03/26/18 17:18 Respiratory Rate 16 03/26/18 17:18 Blood Pressure 104/64 03/26/18 17:18 O2 Sat by Pulse Oximetry 98 03/26/18 17:18 Oxygen Delivery Oxygen Delivery Room Air Medical Decision Making - Lab Data Result diagrams: 03/26/18 17:26 03/26/18 17:26 Lab Results 03/26/18 03/26/18 03/26/18 Range/Units 17:26 17:26 17:35 WBC 10.3 (4.3-11.1) K/mcL RBC 4.49 (3.82-4.97) M/mcL Hgb 14.5 (11.5-15.4) g/dL Hct 42.2 (35.3-44.9) % MCV 94.0 (83.0-100.0) fL MCH 32.3 (28.0-33.3) pg MCHC 34.4 (31.6-35.5) g/dL RDW 12.7 (11.5-14.5) % Plt Count 271 (140-400) K/mcL MPV 10.2 (9.4-12.4) fL Immature Gran % 0.3 (0-4) % Seg Neutrophils % 65.2 % Lymphocytes % 27.3 % Monocytes % 5.4 % Eosinophils % 1.3 % Basophils % 0.5 % Neutrophils # 6.7 (1.6-8.9) K/mcL Lymphocytes # 2.8 (0.6-4.6) K/mcL Monocytes # 0.6 (0.0-1.3) K/mcL Eosinophils # 0.1 (0.0-0.6) K/mcL Basophils # 0.1 (0.0-0.2) K/mcL Sodium 140 (136-145) mEq/L Potassium 4.0 (3.5-5.1) mEq/L Chloride 108 H (98-107) mEq/L Carbon Dioxide 27 (23-29) mEq/L BUN 11 (6-20) mg/dL Creatinine 0.87 (0.60-1.20) mg/dL Est GFR ( Amer) > 60 (> 60) Est GFR (Non-Af Amer) > 60 (> 60) BUN/Creatinine Ratio 13 (6-26) Glucose 96 (70-105) mg/dL Calculated Osmolality 289 (280-300) Calcium 9.5 (8.6-10.3) mg/dL Urine Color Dark Yellow (Yellow) Urine Clarity Clear (Clear) Urine pH 5.5 (5.0-8.0) pH Units Ur Specific [place] 1.028 H (1.010-1.025) Urine Protein 100 H (Neg-Trace) mg/dL Urine Glucose (UA) Normal (Normal) mg/dL Urine Ketones Trace H (Negative) mg/dL Urine Blood Trace H (Negative) Urine Nitrite Negative (Negative) Urine Bilirubin Small H (Negative) Urine Urobilinogen Normal (Normal) mg/dL Ur Leukocyte Esterase Small H (Negative) Urine Microscopic RBC 0-3 (0-3) per hpf Urine Microscopic WBC 5-15 H (0-3) per hpf Ur Squamous Epith Cells Many H (None-Few) per lpf Urine Bacteria Few (None-Few) per hpf Hyaline Casts None Seen (None-Few) per lpf Urine Test (Negative) Salicylates < 2.5 L (15.0-30.0) mg/dL Urine Opiates Screen (Neayrn=031) ng/mL Acetaminophen < 10 L (10-20) mcg/mL Ur Barbiturates Screen (Qnuidp=182) ng/mL Ur Phencyclidine Scrn (Cutoff=25) ng/mL Ur Amphetamines Screen (Pmzqdy=0283) ng/mL U Benzodiazepines Scrn (Mdocid=283) ng/mL Urine Cocaine Screen (Cutoff= 300) ng/mL U Marijuana (THC) Screen (Cutoff = 50) ng/mL Ur Drug Screen Interp Ethyl Alcohol 11 H (Less than 10) mg/dL 03/26/18 03/26/18 Range/Units 17:35 17:35 WBC (4.3-11.1) K/mcL RBC (3.82-4.97) M/mcL Hgb (11.5-15.4) g/dL Hct (35.3-44.9) % MCV (83.0-100.0) fL MCH (28.0-33.3) pg MCHC (31.6-35.5) g/dL RDW (11.5-14.5) % Plt Count (140-400) K/mcL MPV (9.4-12.4) fL Immature Gran % (0-4) % Seg Neutrophils % % Lymphocytes % % Monocytes % % Eosinophils % % Basophils % % Neutrophils # (1.6-8.9) K/mcL Lymphocytes # (0.6-4.6) K/mcL Monocytes # (0.0-1.3) K/mcL Eosinophils # (0.0-0.6) K/mcL Basophils # (0.0-0.2) K/mcL Sodium (136-145) mEq/L Potassium (3.5-5.1) mEq/L Chloride (98-107) mEq/L Carbon Dioxide (23-29) mEq/L BUN (6-20) mg/dL Creatinine (0.60-1.20) mg/dL Est GFR ( Amer) (> 60) Est GFR (Non-Af Amer) (> 60) BUN/Creatinine Ratio (6-26) Glucose (70-105) mg/dL Calculated Osmolality (280-300) Calcium (8.6-10.3) mg/dL Urine Color (Yellow) Urine Clarity (Clear) Urine pH (5.0-8.0) pH Units Ur Specific [place] (1.010-1.025) Urine Protein (Neg-Trace) mg/dL Urine Glucose (UA) (Normal) mg/dL Urine Ketones (Negative) mg/dL Urine Blood (Negative) Urine Nitrite (Negative) Urine Bilirubin (Negative) Urine Urobilinogen (Normal) mg/dL Ur Leukocyte Esterase (Negative) Urine Microscopic RBC (0-3) per hpf Urine Microscopic WBC (0-3) per hpf Ur Squamous Epith Cells (None-Few) per lpf Urine Bacteria (None-Few) per hpf Hyaline Casts (None-Few) per lpf Urine Test Negative (Negative) Salicylates (15.0-30.0) mg/dL Urine Opiates Screen Negative (Vkfacx=387) ng/mL Acetaminophen (10-20) mcg/mL Ur Barbiturates Screen Negative (Rvwmwb=079) ng/mL Ur Phencyclidine Scrn Negative (Cutoff=25) ng/mL Ur Amphetamines Screen Negative (Thbxha=6463) ng/mL U Benzodiazepines Scrn Negative (Vrybxk=362) ng/mL Urine Cocaine Screen Negative (Cutoff= 300) ng/mL U Marijuana (THC) Screen Negative (Cutoff = 50) ng/mL Ur Drug Screen Interp See Below Ethyl Alcohol (Less than 10) mg/dL Attestation Statement - Attestation Attestation: I examined this patient and my medical decision-making was reviewed with the Resident Physician. I agree with the documented findings, disposition and treatment plan as described except to the extent set forth below. Patient presents to the ED with a chief complaint of suicidal thoughts. History of the same. Noncompliant with medications. She has no specific plan. On examination she is in no acute distress. Tearful. Plan. Medical clearance and evaluation by 1A. Patient medically cleared at this time. Contacting 1A for evaluation. 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
[2018-03-26 17:38] LABS: Basophils # 0.1 K/mcL (0.0-0.2); Basophils % 0.5 %; Eosinophils # 0.1 K/mcL (0.0-0.6); Eosinophils % 1.3 %; Hematocrit 42.2 % (35.3-44.9); Hemoglobin 14.5 g/dL (11.5-15.4); Immature Granulocytes % 0.3 % (0-4); Lymphocytes # 2.8 K/mcL (0.6-4.6); Lymphocytes % 27.3 %; Mean Corpuscular HGB Conc 34.4 g/dL (31.6-35.5); Mean Corpuscular Hemoglobin 32.3 pg (28.0-33.3); Mean Platelet Volume 10.2 fL (9.4-12.4); Monocytes # 0.6 K/mcL (0.0-1.3); Monocytes % 5.4 %; Neutrophils # 6.7 K/mcL (1.6-8.9); Platelet Count 271 K/mcL (140-400); Red Blood Count 4.49 M/mcL (3.82-4.97); Red Cell Distribution Width 12.7 % (11.5-14.5); Segmented Neutrophils % 65.2 %
[2018-03-26 17:46] LABS: Bilirubin,Urine Small (Negative); Blood,Urine Trace (Negative); Clarity,Urine Clear (Clear); Color,Urine Dark Yellow (Yellow); Glucose,Urine (UA) Normal (Normal); Ketones,Urine Trace mg/dL (Negative); Leukocyte Esterase,Urine Small (Negative); Nitrite,Urine Negative (Negative); PH,Urine 5.5 pH Units (5.0-8.0); Protein,Urine 100 mg/dL (Neg-Trace); Specific Gravity,Urine 1.028 (1.010-1.025); Urobilinogen,Urine Normal (Normal)
[2018-03-26 17:47] LABS: Bacteria,Urine Few per hpf (None-Few); Hyaline Casts,Urine None Seen per lpf (None-Few); Squamous Epithelial Cell,Urine Many per lpf (None-Few)
[2018-03-26 17:55] LABS: Amphetamine Screen,Urine Negative ng/mL (Cutoff=1000); Barbiturate Screen,Urine Negative ng/mL (Cutoff=200); Benzodiazepines Screen,Urine Negative ng/mL (Cutoff=200); Cannabinoid Screen,Urine Negative ng/mL (Cutoff = 50); Cocaine Screen,Urine Negative ng/mL (Cutoff= 300); Opiate Screen,Urine Negative ng/mL (Cutoff=300); Phencyclidine Screen,Urine Negative ng/mL (Cutoff=25)
[2018-03-26 18:01] LABS: RBC,Urine 0-3 per hpf (0-3)
[2018-03-26 18:06] LABS: Acetaminophen < 10 mcg/mL (10-20); BUN/Creatinine Ratio 13 (6-26); Blood Urea Nitrogen 11 mg/dL (6-20); Calcium 9.5 mg/dL (8.6-10.3); Carbon Dioxide 27 mEq/L (23-29); Chloride 108 mEq/L (98-107); Ethanol 11 mg/dL (Less than 10); Glucose 96 mg/dL (70-105); Osmolality,Calculated 289 (280-300); Salicylate < 2.5 mg/dL (15.0-30.0); Sodium 140 mEq/L (136-145); eGFR For Non-African Americans > 60 (> 60)
[2018-03-26] MEDS: Nicotine 21 MG PATCH.TD24 TD SCH (20:01)
--- NOTE | 2018-03-26 21:06 | Emergency Department Note ---
Disposition Clinical Impression: Suicidal ideation Disposition: Still a Patient Condition: Good Psych HPI - General Chief Complaint: ED Psychiatric Symptoms Stated Complaint: SI; hasn't eaten for 4 days Time Seen by Provider: 03/26/18 17:11 Source: patient Mode of arrival: ambulatory - Related Data Home Medications Medication Instructions Recorded Confirmed LevETIRAcetam [Keppra] 1,500 mg PO BID 09/23/17 03/26/18 LORazepam [Ativan] 0.5 mg PO DAILY PRN 03/26/18 03/26/18 Allergies Allergy/AdvReac Type Severity Reaction Status Date / Time Amoxicillin Allergy Anaphylaxis Verified 11/13/17 09:39 hazelnut Allergy Hives Verified 11/13/17 09:39 hydrocodone [From Vicodin] Allergy Vomiting Verified 11/13/17 09:39 iodine Allergy Rash Verified 11/13/17 09:39 iron Allergy See Verified 11/13/17 09:39 Comments Oxycodone [From Percocet] Allergy Hives Verified 11/13/17 09:39 Penicillins Allergy Anaphylaxis Verified 11/13/17 09:39 povidone-iodine Allergy Hives Verified 11/13/17 09:39 [From Betadine] soap [From Betadine] Allergy Hives Verified 11/13/17 09:39 Sulfa (Sulfonamide Allergy Hives Verified 11/13/17 09:39 Antibiotics) codeine AdvReac Vomiting Verified 11/13/17 09:39 Cyclobenzaprine AdvReac Agitated Verified 11/13/17 09:39 [From Flexeril] diazepam [From Valium] AdvReac See Verified 11/13/17 09:39 Comments quetiapine [From Seroquel] AdvReac Seizure Verified 11/13/17 09:39 dinh beans Allergy Swelling Uncoded 11/13/17 09:39 of Lip/Tongue/Throat Raw egg Allergy Anaphylaxis Uncoded 11/13/17 09:39 Constitutional: Denies: fever Cardiovascular: Denies: chest pain, palpitations Respiratory: Denies: cough, dyspnea, wheezes, hemoptysis Gastrointestinal: Denies: abdominal pain Genitourinary: Denies: urgency, dysuria Musculoskeletal: Denies: back pain Integumentary: Denies: rash Neurological: Denies: headache, weakness, numbness, paresthesias Past Medical History - Past Medical History Medical history: Reports: no medical history Surgical history: Reports: Psychiatric history: Reports: prior suicide attempt, previous psychiatric hospitalization [employer] history: Reports: bilateral tubal ligation - Social History Smoking Status: Current every day smoker Smokeless Tobacco Status: No Alcohol use: Reports: heavy Drug use: Reports: none Physical Exam - General Limitations: no limitations General appearance: alert, in no apparent distress Course Course Narrative: Taken over at sign out from the day physician. Patient accepted to one a for admission. I did not evaluate this patient during the short amount of time that it took from sign out to psychiatric acceptance. There was no questions or concerns or brought to my attention. Vital Signs Temperature 98.0 F 03/26/18 17:08 Pulse Rate 95 03/26/18 17:08 Respiratory Rate 16 03/26/18 17:08 Blood Pressure 104/64 03/26/18 17:08 O2 Sat by Pulse Oximetry 98 03/26/18 17:08 Temperature 96.9 F L 03/26/18 20:54 Pulse Rate 75 03/26/18 20:54 Respiratory Rate 18 03/26/18 20:54 Blood Pressure 88/54 03/26/18 20:54 O2 Sat by Pulse Oximetry 98 03/26/18 17:18 Oxygen Delivery Oxygen Delivery Room Air Psych - Lab Data Result diagrams: 03/26/18 17:26 03/26/18 17:26 Lab Results 03/26/18 03/26/18 03/26/18 Range/Units 17:26 17:26 17:35 WBC 10.3 (4.3-11.1) K/mcL RBC 4.49 (3.82-4.97) M/mcL Hgb 14.5 (11.5-15.4) g/dL Hct 42.2 (35.3-44.9) % MCV 94.0 (83.0-100.0) fL MCH 32.3 (28.0-33.3) pg MCHC 34.4 (31.6-35.5) g/dL RDW 12.7 (11.5-14.5) % Plt Count 271 (140-400) K/mcL MPV 10.2 (9.4-12.4) fL Immature Gran % 0.3 (0-4) % Seg Neutrophils % 65.2 % Lymphocytes % 27.3 % Monocytes % 5.4 % Eosinophils % 1.3 % Basophils % 0.5 % Neutrophils # 6.7 (1.6-8.9) K/mcL Lymphocytes # 2.8 (0.6-4.6) K/mcL Monocytes # 0.6 (0.0-1.3) K/mcL Eosinophils # 0.1 (0.0-0.6) K/mcL Basophils # 0.1 (0.0-0.2) K/mcL Sodium 140 (136-145) mEq/L Potassium 4.0 (3.5-5.1) mEq/L Chloride 108 H (98-107) mEq/L Carbon Dioxide 27 (23-29) mEq/L BUN 11 (6-20) mg/dL Creatinine 0.87 (0.60-1.20) mg/dL Est GFR ( Amer) > 60 (> 60) Est GFR (Non-Af Amer) > 60 (> 60) BUN/Creatinine Ratio 13 (6-26) Glucose 96 (70-105) mg/dL Calculated Osmolality 289 (280-300) Calcium 9.5 (8.6-10.3) mg/dL Urine Color Dark Yellow (Yellow) Urine Clarity Clear (Clear) Urine pH 5.5 (5.0-8.0) pH Units Ur Specific [employer] 1.028 H (1.010-1.025) Urine Protein 100 H (Neg-Trace) mg/dL Urine Glucose (UA) Normal (Normal) mg/dL Urine Ketones Trace H (Negative) mg/dL Urine Blood Trace H (Negative) Urine Nitrite Negative (Negative) Urine Bilirubin Small H (Negative) Urine Urobilinogen Normal (Normal) mg/dL Ur Leukocyte Esterase Small H (Negative) Urine Microscopic RBC 0-3 (0-3) per hpf Urine Microscopic WBC 5-15 H (0-3) per hpf Ur Squamous Epith Cells Many H (None-Few) per lpf Urine Bacteria Few (None-Few) per hpf Hyaline Casts None Seen (None-Few) per lpf Urine Test (Negative) Salicylates < 2.5 L (15.0-30.0) mg/dL Urine Opiates Screen (Ayppzs=056) ng/mL Acetaminophen < 10 L (10-20) mcg/mL Ur Barbiturates Screen (Micruo=518) ng/mL Ur Phencyclidine Scrn (Cutoff=25) ng/mL Ur Amphetamines Screen (Lhtxsx=4012) ng/mL U Benzodiazepines Scrn (Rrrigo=993) ng/mL Urine Cocaine Screen (Cutoff= 300) ng/mL U Marijuana (THC) Screen (Cutoff = 50) ng/mL Ur Drug Screen Interp Ethyl Alcohol 11 H (Less than 10) mg/dL 03/26/18 03/26/18 Range/Units 17:35 17:35 WBC (4.3-11.1) K/mcL RBC (3.82-4.97) M/mcL Hgb (11.5-15.4) g/dL Hct (35.3-44.9) % MCV (83.0-100.0) fL MCH (28.0-33.3) pg MCHC (31.6-35.5) g/dL RDW (11.5-14.5) % Plt Count (140-400) K/mcL MPV (9.4-12.4) fL Immature Gran % (0-4) % Seg Neutrophils % % Lymphocytes % % Monocytes % % Eosinophils % % Basophils % % Neutrophils # (1.6-8.9) K/mcL Lymphocytes # (0.6-4.6) K/mcL Monocytes # (0.0-1.3) K/mcL Eosinophils # (0.0-0.6) K/mcL Basophils # (0.0-0.2) K/mcL Sodium (136-145) mEq/L Potassium (3.5-5.1) mEq/L Chloride (98-107) mEq/L Carbon Dioxide (23-29) mEq/L BUN (6-20) mg/dL Creatinine (0.60-1.20) mg/dL Est GFR ( Amer) (> 60) Est GFR (Non-Af Amer) (> 60) BUN/Creatinine Ratio (6-26) Glucose (70-105) mg/dL Calculated Osmolality (280-300) Calcium (8.6-10.3) mg/dL Urine Color (Yellow) Urine Clarity (Clear) Urine pH (5.0-8.0) pH Units Ur Specific [employer] (1.010-1.025) Urine Protein (Neg-Trace) mg/dL Urine Glucose (UA) (Normal) mg/dL Urine Ketones (Negative) mg/dL Urine Blood (Negative) Urine Nitrite (Negative) Urine Bilirubin (Negative) Urine Urobilinogen (Normal) mg/dL Ur Leukocyte Esterase (Negative) Urine Microscopic RBC (0-3) per hpf Urine Microscopic WBC (0-3) per hpf Ur Squamous Epith Cells (None-Few) per lpf Urine Bacteria (None-Few) per hpf Hyaline Casts (None-Few) per lpf Urine Test Negative (Negative) Salicylates (15.0-30.0) mg/dL Urine Opiates Screen Negative (Zphywe=615) ng/mL Acetaminophen (10-20) mcg/mL Ur Barbiturates Screen Negative (Kzwbcb=958) ng/mL Ur Phencyclidine Scrn Negative (Cutoff=25) ng/mL Ur Amphetamines Screen Negative (Tknpre=7784) ng/mL U Benzodiazepines Scrn Negative (Plflnh=381) ng/mL Urine Cocaine Screen Negative (Cutoff= 300) ng/mL U Marijuana (THC) Screen Negative (Cutoff = 50) ng/mL Ur Drug Screen Interp See Below Ethyl Alcohol (Less than 10) mg/dL Psychiatric Medical Clearance - Medical Clearance Checklist Medical History: No Social History Section defined Current Vitals: Last Vital Signs Temp 96.9 F L 03/26/18 20:54 Pulse 75 03/26/18 20:54 Resp 18 03/26/18 20:54 BP 88/54 03/26/18 20:54 Pulse Ox 98 03/26/18 17:18 Psychiatric Lab Panel: Drug Levels and Toxicity 03/26/18 03/26/18 17:26 17:35 Urine Opiates Screen Negative Acetaminophen < 10 L Ur Barbiturates Screen Negative Ur Phencyclidine Scrn Negative Ur Amphetamines Screen Negative U Benzodiazepines Scrn Negative Urine Cocaine Screen Negative U Marijuana (THC) Screen Negative Ethyl Alcohol 11 H Abnormal Labs: Abnormal lab results Chloride 108 mEq/L (98-107) H 03/26/18 17:26 Ur Specific [employer] 1.028 (1.010-1.025) H 03/26/18 17:35 Urine Protein 100 mg/dL (Neg-Trace) H 03/26/18 17:35 Urine Ketones Trace mg/dL (Negative) H 03/26/18 17:35 Urine Blood Trace (Negative) H 03/26/18 17:35 Urine Bilirubin Small (Negative) H 03/26/18 17:35 Ur Leukocyte Esterase Small (Negative) H 03/26/18 17:35 Urine Microscopic WBC 5-15 per hpf (0-3) H 03/26/18 17:35 Ur Squamous Epith Cells Many per lpf (None-Few) H 03/26/18 17:35 Salicylates < 2.5 mg/dL (15.0-30.0) L 03/26/18 17:26 Acetaminophen < 10 mcg/mL (10-20) L 03/26/18 17:26 Ethyl Alcohol 11 mg/dL (Less than 10) H 03/26/18 17:26 Statement of Medical Clearance: I have evaluated the patient, reviewed diagnostic information, and certify that the patient's medical condition is sufficiently stable that transfer to the psychiatric unit does not pose a significant risk of deterioration.
[2018-03-26] MEDS ORDERED: Mag Hydrox/Al Hydrox/Simeth 30 ML UDC PO PRN (21:36)
[2018-03-26] MEDS ORDERED: MOM Conc 10 ML UD.LIQ PO PRN (21:36)
[2018-03-26] MEDS ORDERED: traZODone 50 MG TABLET PO PRN (21:36)
[2018-03-26] MEDS ORDERED: Ibuprofen 400 MG TABLET PO PRN (21:36)
[2018-03-26] MEDS ORDERED: *HR* LORazepam 1 MG TABLET PO PRN (21:36)
[2018-03-26] MEDS ORDERED: *HR* LORazepam 2 MG/ML VIAL IM PRN (21:36)
[2018-03-26] MEDS ORDERED: hydrOXYzine pamoate 25 MG CAPSULE PO PRN (21:36)
[2018-03-26] MEDS ORDERED: Haloperidol Lactate 5 MG/ML VIAL IM PRN (21:36)
[2018-03-26] MEDS ORDERED: *HR* LORazepam 0.5 MG TABLET PO PRN (21:47)
[2018-03-27] MEDS: levETIRAcetam 250 MG TABLET PO SCH ×2 (06:51→18:01)
[2018-03-27] MEDS ORDERED: Nicotine 21 MG PATCH.TD24 TD SCH (09:00)
[2018-03-27] MEDS: Nicotine 21 MG PATCH.TD24 TD SCH (09:24)
--- NOTE | 2018-03-27 14:27 | Psychiatry History & Physical ---
Date of Encounter: 03/27/18 Time of Encounter: 14:00 History of Present Illness Patient Stated Chief Complaint: having thougts to harm myself Medicare Admission Attestation: For traditional Medicare patients the provided hospital inpatient services are reasonable and necessary and in the case of services not specified as inpatient -only under 42 CFR 419.22 (n), that they are appropriately provided as inpatient services in accordance 42 CFR 412.3. For Critical Access Hospital the patient may reasonably be expected to be discharged or transferred to a hospital within 96 hours after admission to the Critical Access Hospital. Admitted From: Emergency Dept Plans for Post Hospital Care: Home History of Present Illness: Per admission note: Patient is a 32-year-old female with past medical history of anxiety, depression , multiple personalities disorder, previous admission to for suicidal ideation 2. She presents today due to depression, suicidal ideation. Patient states that she is having issues with her current partner. They are currently , she states that she has been very depressed for the past month or 2. She stopped taking her Abilify that she is prescribed for depression. She states that she has lost a little with, "just wants to ." She has no specific plan. She states that she would start taking her medication again if her partner decided to take her back. Denies any drug, alcohol use, any self- harm. Denies any homicidal ideation, visual hallucinations. She does admit to auditory hallucinations that she states are chronic and unchanged. She also states that she has not eaten in 4 days due to "just not feeling like and not wanting to live anymore." Pt is a 32 yo, , female, never , with 1 daughter who presents for mood and depression to the emergency department. Pt noted I wanted to hurt myself .... I didnt feel I mattered to anything...... Pt noted "I cant hurt myself my daughter need me." Pt noted she felt safe and comfortable on the unit. Pt was in agreement with treatment plan. Pt noted that she is doing better today. Pt noted she slept about 8 hours last night. Pt noted her appetite is better. Pt rated her depression a 0, on a scale of zero to ten with ten being the worst and zero being none. Pt rate her anxiety a "0 but can go up to a 10, on the same scale. Pt denied any current visual or auditory hallucinations. Pt denied any thoughts to harm herself or anyone else. Pt noted she has her own home in [place], [place]. Pt noted that her highest level of education is [employer]. Pt noted she is currently unemployed, pending SSDI. Pt noted 3 inpt psychiatric hospitalizations. Pt noted 1 previous suicide attempts approx. 10+ years ago overdose on Ibprofen. Pt noted her uncle ( paternal PTSD) completed suicide. PT noted her mother is bipolar with psychosis. PT agreed to utilizing only ativan, keppra, sertraline and abilify for medication management of Bipolar D/O. Pt was educated on the risks benefits and side-effects of these medications including no medication, pt was in agreement. Pt denied any hx of HIV, Hep C or TBIs. Pt noted hx of seizures last seizure was 2 weeks ago. 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 5.Supportive therapy was provided 6.Pt encouraged to consider group or individual therapy 7.Pt was in agreement with treatment plan. 8.Pt was educated on the risks benefits and side effects of current medications. 9. start zoloft 50 mg PO QHS 10. Continue abilify 2 mg PO QAM Past Med Surg Social Fam HX - Past Medical History Medical history: no medical history - Past Psychiatric History Psychiatric history: Reports: depression, prior suicide attempt Family psychiatric history: Yes Family History of Suicide: Completed (uncle) - Past Surgical History Surgical History: - Social History Smoking Status: Current every day smoker Smokeless Tobacco Status: No Alcohol use: heavy Drug use: none Medications & Allergies LevETIRAcetam [Keppra] 1,500 mg PO BID 09/23/17 [History] LORazepam [Ativan] 0.5 mg PO DAILY PRN 03/26/18 [History] 3 Allergy/AdvReac Type Severity Reaction Status Date / Time Amoxicillin Allergy Anaphylaxis Verified 11/13/17 09:39 hazelnut Allergy Hives Verified 11/13/17 09:39 hydrocodone [From Vicodin] Allergy Vomiting Verified 11/13/17 09:39 iodine Allergy Rash Verified 04/11/18 09:39 iron Allergy See Verified 11/13/17 09:39 Comments Oxycodone [From Percocet] Allergy Hives Verified 11/13/17 09:39 Penicillins Allergy Anaphylaxis Verified 11/13/17 09:39 povidone-iodine Allergy Hives Verified 11/13/17 09:39 [From Betadine] soap [From Betadine] Allergy Hives Verified 11/13/17 09:39 Sulfa (Sulfonamide Allergy Hives Verified 11/13/17 09:39 Antibiotics) codeine AdvReac Vomiting Verified 11/13/17 09:39 Cyclobenzaprine AdvReac Agitated Verified 11/13/17 09:39 [From Flexeril] diazepam [From Valium] AdvReac See Verified 11/13/17 09:39 Comments quetiapine [From Seroquel] AdvReac Seizure Verified 11/13/17 09:39 dinh beans Allergy Swelling Uncoded 11/13/17 09:39 of Lip/Tongue/Throat Review of Systems Constitutional: Denies: fever, chills, weakness, weight change Eyes: Denies: eye pain, vision change Ears, Nose, Throat: Denies: ear pain, throat pain, dental pain, hearing loss, congestion Cardiovascular: Denies: chest pain, palpitations, dyspnea on exertion Respiratory: Denies: cough, dyspnea, wheezes Gastrointestinal: Denies: abdominal pain, nausea, vomiting, diarrhea, constipation Genitourinary female: Denies: urgency, dysuria, frequency, abnormal menses, dyspareunia Musculoskeletal: Denies: joint swelling, joint pain Integumentary: Denies: rash, lesions, pruritus Neurological: Denies: headache, weakness, numbness, memory loss Psychiatric: Reports: depression, suicidal ideation Endocrine: Denies: fatigue, heat or cold intolerance Hematologic/Lymphatic: Denies: easy bruising, lymphadenopathy Allergic/Immunologic: Denies: urticaria, itchy eyes Exam - HEENT Head exam IM: Present: atraumatic Eye exam IM: Present: EOMI, normal appearance, PERRL ENT exam IM: Present: normal exam - Neurological Neurological exam: Present: CN II-XII intact - Respiratory Respiratory exam IM: Present: CTAB - GI/Abdominal GI/Abdominal exam IM: Present: normal bowel sounds, soft. Absent: tenderness - Extremities Extremities exam IM: Present: full ROM - Skin Skin exam IM: Present: dry, warm - Constitutional Vitals: Temp Pulse Resp BP Pulse Ox 98.0 F 88 16 88/59 98 03/27/18 09:00 03/27/18 09:00 03/27/18 09:00 03/27/18 09:00 03/26/18 17:18 General appearance: age & developmentally appropriate, well-groomed, well- nourished - Musculoskeletal Gait: normal Station: relaxed Strength & Tone: normal for patient - Psychiatric Patient Orientation: Yes Person, Yes Time, Yes Place Level of alertness: Alert Behavior: calm, cooperative, guarded Psychomotor activity: Normal Eye Contact: Maintains Eye Contact Mood Description: Euthymic/stable, Depressed Affect description: congruent with mood, full range Speech Volume: Normal Speech pattern: normal rate, normal rhythm, normal tone, fluent, spontaneous Language & Vocabulary: consistent with education Thought Process: Linear, Goal Oriented Thought Content: No Suicidal ideation, No Homicidal ideation, No Overt delusions Perceptual Disturbances: No Auditory hallucinations, No Visual hallucinations Attention Span Ability: Capable of Focused Attention Memory Description: Grossly Intact Patient Reliability: Reliable Historian Fund of knowledge: Yes abstraction ability, Yes average, Yes aware of current events Intelligence Estimate: Average Judgment: Limited Insight: Partial Results - Labs Labs: Laboratory Last Values WBC 10.3 K/mcL (4.3-11.1) 03/26/18 17:26 RBC 4.49 M/mcL (3.82-4.97) 03/26/18 17:26 Hgb 14.5 g/dL (11.5-15.4) 03/26/18 17:26 Hct 42.2 % (35.3-44.9) 03/26/18 17:26 MCV 94.0 fL (83.0-100.0) 03/26/18 17:26 MCH 32.3 pg (28.0-33.3) 03/26/18 17:26 MCHC 34.4 g/dL (31.6-35.5) 03/26/18 17:26 RDW 12.7 % (11.5-14.5) 03/26/18 17:26 Plt Count 271 K/mcL (140-400) 03/26/18 17:26 MPV 10.2 fL (9.4-12.4) 03/26/18 17:26 Immature Gran % 0.3 % (0-4) 03/26/18 17: Seg Neutrophils % 65.2 % 03/26/18 17: Lymphocytes % 27.3 % 03/26/18 17: Monocytes % 5.4 % 03/26/18 17: Eosinophils % 1.3 % 03/26/18 17: Basophils % 0.5 % 03/26/18 17: Neutrophils # 6.7 K/mcL (1.6-8.9) 03/26/18 17: Lymphocytes # 2.8 K/mcL (0.6-4.6) 03/26/18: Monocytes # 0.6 K/mcL (0.0-1.3) 03/26/18 17: Eosinophils # 0.1 K/mcL (0.0-0.6) 03/26/18 17: Basophils # 0.1 K/mcL (0.0-0.2) 03/26/18 17:26 Sodium 140 mEq/L (136-145) 03/26/18 17:26 Potassium 4.0 mEq/L (3.5-5.1) 03/26/18 17: Chloride 108 mEq/L (98-107) H 03/26/18 17:26 Carbon Dioxide 27 mEq/L (23-29) 03/26/18 17:26 BUN 11 mg/dL (6-20) 03/26/18 17: Creatinine 0.87 mg/dL (0.60-1.20) 03/26/18 17:26 Est GFR ( Amer) > 60 (> 60) 03/26/18 17:26 Est GFR (Non-Af Amer) > 60 (> 60) 03/26/18 17:26 BUN/Creatinine Ratio 13 (6-26) 03/26/18 17:26 Glucose 96 mg/dL (70-105) 03/26/18 17:26 Calculated Osmolality 289 (280-300) 03/26/18 17:26 Calcium 9.5 mg/dL (8.6-10.3) 03/26/18 17:26 Urine Color Dark Yellow (Yellow) 03/26/18 17:35 Urine Clarity Clear (Clear) 03/26/18 17:35 Urine pH 5.5 pH Units (5.0-8.0) 03/26/18 17:35 Ur Specific [place] 1.028 (1.010-1.025) H 03/26/18 17:35 Urine Protein 100 mg/dL (Neg-Trace) H 03/26/18 17:35 Urine Glucose (UA) Normal mg/dL (Normal) 03/26/18 17:35 Urine Ketones Trace mg/dL (Negative) H 03/26/18 17:35 Urine Blood Trace (Negative) H 03/26/18 17:35 Urine Nitrite Negative (Negative) 03/26/18 17:35 Urine Bilirubin Small (Negative) H 03/26/18 17:35 Urine Urobilinogen Normal mg/dL (Normal) 03/26/18 17:35 Ur Leukocyte Esterase Small (Negative) H 03/26/18 17:35 Urine Microscopic RBC 0-3 per hpf (0-3) 03/26/18 17:35 Urine Microscopic WBC 5-15 per hpf (0-3) H 03/26/18 17:35 Ur Squamous Epith Cells Many per lpf (None-Few) H 03/26/18 17:35 Urine Bacteria Few per hpf (None-Few) 03/26/18 17:35 Hyaline Casts None Seen per lpf (None-Few) 03/26/18 17:35 Urine Test Negative (Negative) 03/26/18 17:35 Salicylates < 2.5 mg/dL (15.0-30.0) L 03/26/18 17:26 Urine Opiates Screen Negative ng/mL (Qdemyc=533) 03/26/18 17:35 Acetaminophen < 10 mcg/mL (10-20) L 03/26/18 17:26 Ur Barbiturates Screen Negative ng/mL (Kinyeo=095) 03/26/18 17:35 Ur Phencyclidine Scrn Negative ng/mL (Cutoff=25) 03/26/18 17:35 Ur Amphetamines Screen Negative ng/mL (Zzdxsr=4617) 03/26/18 17:35 U Benzodiazepines Scrn Negative ng/mL (Nypgpw=829) 03/26/18 17:35 Urine Cocaine Screen Negative ng/mL (Cutoff= 300) 03/26/18 17:35 U Marijuana (THC) Screen Negative ng/mL (Cutoff = 50) 03/26/18 17:35 Ur Drug Screen Interp See Below 03/26/18 17:35 Ethyl Alcohol 11 mg/dL (Less than 10) H 03/26/18 17:26 Assessment and Plan (1) Suicidal ideation Current visit: Yes Status: Acute Plan: Admit inpatient for safety and stabilization, Close observation, Suicide Precautions per unit protocol, Encourage participation in unit milieu, Group Therapy, Monitor sleep, Monitor appetite Risks, benefits, side effects, alternatives discussed w/pt: Yes Patient agreeable to treatment: Yes Plans for Post Hospital Care: Home (2) Major depress dis, severe Current visit: No Status: Acute Plan: Admit inpatient for safety and stabilization, Close observation, Suicide Precautions per unit protocol, Encourage participation in unit milieu, Group Therapy, Monitor sleep, Monitor appetite Risks, benefits, side effects, alternatives discussed w/pt: Yes Patient agreeable to treatment: Yes Plans for Post Hospital Care: Home
[2018-03-27] MEDS: ARIPiprazole 2 MG TABLET PO SCH (15:53)
[2018-03-27] MEDS ORDERED: Neosporin OINT 15 GM TUBE TP PRN (18:14)
[2018-03-28] MEDS: levETIRAcetam 250 MG TABLET PO SCH (06:10)
[2018-03-28] MEDS: ARIPiprazole 2 MG TABLET PO SCH (08:30)
[2018-03-28] MEDS: Nicotine 21 MG PATCH.TD24 TD SCH (08:30)
[2018-03-28 09:03] VITALS: BP 88/68
--- NOTE | 2018-03-28 10:31 | Psychiatry Progress Note ---
Date of Encounter: 03/28/18 Time of Encounter: 09:15 Subjective Interval history: Pt is a 32 yo, , female, never , with 1 daughter who presents for mood and depression to the emergency department. Pt noted I really wanna see my daughter...... Pt noted "I am doing much better today." Pt noted she felt safe and comfortable on the unit. Pt was in agreement with treatment plan. Pt noted that she is doing better today. Pt noted she slept about 8 hours last night. Pt noted her appetite is better. Pt rated her depression a 0, on a scale of zero to ten with ten being the worst and zero being none. Pt rate her anxiety a "0 but can go up to a 10, on the same scale. Pt denied any current visual or auditory hallucinations. Pt denied any thoughts to harm herself or anyone else. Pt denied any hx of HIV, Hep C or TBIs. Pt noted hx of seizures last seizure was 2 weeks ago. 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 5.Supportive therapy was provided 6.Pt encouraged to consider group or individual therapy 7.Pt was in agreement with treatment plan. 8.Pt was educated on the risks benefits and side effects of current medications. 9. Continue zoloft 50 mg PO QHS 10. Continue abilify 2 mg PO QAM Review of Systems Constitutional: Denies: fever, chills, weakness, weight change Eyes: Denies: eye pain, vision change Ears, Nose, Throat: Denies: ear pain, throat pain, dental pain, hearing loss, congestion Cardiovascular: Denies: chest pain, palpitations, dyspnea on exertion Respiratory: Denies: cough, dyspnea, wheezes Gastrointestinal: Denies: abdominal pain, nausea, vomiting, diarrhea, constipation Musculoskeletal: Denies: joint swelling, joint pain Neurological: Denies: headache, weakness, numbness, memory loss Psychiatric: Reports: depression, suicidal ideation Results - Vital Signs Vital Signs: Temp Pulse Resp BP Pulse Ox 98 F 107 16 88/68 98 03/28/18 09:00 03/28/18 09:00 03/28/18 09:00 03/28/18 09:00 03/26/18 17:18 Assessment and Plan (1) Suicidal ideation Current visit: Yes Status: Acute Plan: Continue hospitalization, Close observation, Suicide Precautions per unit protocol, Encourage participation in unit milieu, Group Therapy, Monitor sleep, Monitor appetite Risks, benefits, side effects, alternatives discussed w/pt: Yes Patient agreeable to treatment: Yes (2) Major depress dis, severe Current visit: No Status: Acute Plan: Continue hospitalization, Close observation, Suicide Precautions per unit protocol, Encourage participation in unit milieu, Group Therapy, Monitor sleep, Monitor appetite Risks, benefits, side effects, alternatives discussed w/pt: Yes Patient agreeable to treatment: Yes (3) Borderline personality disorder Current visit: Yes Status: Acute Plan: Continue hospitalization, Close observation, Suicide Precautions per unit protocol, Encourage participation in unit milieu, Group Therapy, Monitor sleep, Monitor appetite Risks, benefits, side effects, alternatives discussed w/pt: Yes Patient agreeable to treatment: Yes Consult Discharge Plan - Plan Referrals: [facility] [Outside] - 04/23/18 2:00 pm (The above appointment is with Renita Nieto for mental health counseling services. Please arrive 10 minutes early to complete the check-in process. Please bring your insurance card (or HCAP award letter) and photo ID. If you are unable to keep this appointment, 24 hour business notice of cancellation is expected. If you miss your new patient appointment with any provider without providing appropriate notice, you cannot be re-scheduled for that service. The above appointment(s) reflects first availability. You may contact the office regularly to check for cancellations that may allow you to be seen sooner. The [facility] is the 1st building behind [facility] in [place], [place]. Please do not use GPS or mapping apps to locate the office, as they will take you to the wrong location. ) [facility] [Outside] - 04/03/18 8:30 am (The above appointment is with Chen for substance abuse assessment and counseling services. Please bring your photo ID and insurance acard to this appointment.) [facility] [Outside] - 04/29/18 10:00 am (The above appointment is with Dolores Roque for outpatient psychiatric assessment and medication management services. Please arrive 30 minutes early for first time psychiatry appointments, and 15 minutes early for follow-up psychiatry appointments. Please bring your photo ID (bring proof of address if you do not have an ID), insurance card and medication list. The above appointment(s) reflects first availability. You may contact the office regularly to check for cancellations that may allow you to be seen sooner. ) Psychiatry Exam - Constitutional Vitals: Temp Pulse Resp BP Pulse Ox 98 F 107 16 88/68 98 03/28/18 09:00 03/28/18 09:00 03/28/18 09:00 03/28/18 09:00 03/26/18 17:18 General appearance: age & developmentally appropriate, well-groomed, well- nourished - Musculoskeletal Gait: normal Station: relaxed Strength & Tone: normal for patient - Psychiatric Patient Orientation: Yes Person, Yes Time, Yes Place Level of alertness: Alert Behavior: cooperative, anxious, talkative Psychomotor activity: Normal Eye Contact: Maintains Eye Contact Mood Description: Euthymic/stable, Elevated Affect description: congruent with mood, euthymic Speech Volume: Normal Speech pattern: normal rate, normal rhythm, normal tone, fluent, spontaneous Language & Vocabulary: consistent with education Thought Process: Linear, Goal Oriented Thought Content: No Suicidal ideation, No Homicidal ideation, No Overt delusions Perceptual Disturbances: No Auditory hallucinations, No Visual hallucinations Attention Span Ability: Capable of Focused Attention Memory Description: Grossly Intact Patient Reliability: Reliable Historian Fund of knowledge: Yes abstraction ability, Yes aware of current events Intelligence Estimate: Average Judgment: Limited Insight: Partial
[2018-03-28] MEDS ORDERED: *HR* LORazepam 0.5 MG TABLET PO PRN (11:54)
--- NOTE | 2018-03-31 13:58 | Discharge Summary ---
Date of Encounter: 03/28/18 Time of Encounter: 12:00 Diagnosis - Discharge Diagnosis (1) Suicidal ideation Status: Acute (2) Major depress dis, severe Status: Acute (3) Borderline personality disorder Status: Acute Medications - Discharge Medications LevETIRAcetam [Keppra] 1,500 mg PO BID 09/23/17 [History] LORazepam [Ativan] 0.5 mg PO DAILY PRN 03/26/18 [History] 3 Allergy/AdvReac Type Severity Reaction Status Date / Time Amoxicillin Allergy Anaphylaxis Verified 11/13/17 09:39 hazelnut Allergy Hives Verified 11/13/17 09:39 hydrocodone [From Vicodin] Allergy Vomiting Verified 11/13/17 09:39 iodine Allergy Rash Verified 11/13/17 09:39 iron Allergy See Verified 11/13/17 09:39 Comments Oxycodone [From Percocet] Allergy Hives Verified 11/13/17 09:39 Penicillins Allergy Anaphylaxis Verified 11/13/17 09:39 povidone-iodine Allergy Hives Verified 11/13/17 09:39 [From Betadine] soap [From Betadine] Allergy Hives Verified 11/13/17 09:39 Sulfa (Sulfonamide Allergy Hives Verified 11/13/17 09:39 Antibiotics) codeine AdvReac Vomiting Verified 11/13/17 09:39 Cyclobenzaprine AdvReac Agitated Verified 11/13/17 09:39 [From Flexeril] diazepam [From Valium] AdvReac See Verified 11/13/17 09:39 Comments quetiapine [From Seroquel] AdvReac Seizure Verified 11/13/17 09:39 dinh beans Allergy Swelling Uncoded 11/13/17 09:39 of Lip/Tongue/Throat Provider Date of admission: 03/26/18 20:24 Primary care physician: PCP NONE Discharging clinician: Alejandro Rodriguez Psychiatry Exam - Constitutional Vitals: Temp Pulse Resp BP Pulse Ox 98 F 107 16 88/68 98 03/28/18 09:00 03/28/18 09:00 03/28/18 09:00 03/28/18 09:00 03/26/18 17:18 General appearance: age & developmentally appropriate, well-groomed, well- nourished - Musculoskeletal Gait: normal Station: relaxed Strength & Tone: normal for patient - Psychiatric Patient Orientation: Yes Person, Yes Time, Yes Place Level of alertness: Alert Behavior: calm, cooperative Psychomotor activity: Normal Eye Contact: Maintains Eye Contact Mood Description: Euthymic/stable Affect description: congruent with mood, full range Speech Volume: Normal Speech pattern: normal rate, normal rhythm, normal tone, fluent, spontaneous Language & Vocabulary: consistent with education Thought Process: Linear, Goal Oriented Thought Content: No Suicidal ideation, No Homicidal ideation, No Overt delusions Perceptual Disturbances: No Auditory hallucinations, No Visual hallucinations Attention Span Ability: Capable of Focused Attention Memory Description: Grossly Intact Patient Reliability: Reliable Historian Fund of knowledge: Yes abstraction ability, Yes aware of current events Intelligence Estimate: Average Judgment: Limited Insight: Partial Hospital Course Hospital course: Pt is a 32 yo, , female, never , with 1 daughter who presents for mood and depression to the emergency department. Pt noted I really wanna see my daughter...... Pt noted "I am doing much better today." Pt noted she felt safe and comfortable on the unit. Pt was in agreement with treatment plan. Pt noted that she is doing better today. Pt noted she slept about 8 hours last night. Pt noted her appetite is better. Pt rated her depression a 0, on a scale of zero to ten with ten being the worst and zero being none. Pt rate her anxiety a "0, on the same scale. Pt denied any current visual or auditory hallucinations. Pt denied any thoughts to harm herself or anyone else. Pt noted a significant reeducation in her depression and anxiety during her stay on [facility] [facility]. Pt noted that she slowly improved to the point that she was comfortable and safe to return home. Pt noted she felt her medications were working well and denied any current side effects. Treatment team encouraged to stay out of bed and try to find activities to do, verbalized understanding. Pt reported that she felt safe on the unit and comfortable for discharge home. Pt Denied suicidal/homicidal ideations, denied any problems or concerns with medications or side effects. Pt voiced progression towards treatment goals and was offered a copy of updated treatment plan completed during visit today. Denied any immediate needs or concerns. Pt throughout her stay on [facility] [facility] pt felt like her medications were working and felt comfortable being discharged on these medications. Pt was advised to take all medications as prescribed, follow up with all scheduled appointments and abstain from any alcohol or illicit substances. Pt was in agreement. Pt felt safe and comfortable to be discharged to her home to follow up with outpt mental health. Pt was very optimistic bout her D/C and returning to her home. Pt denies any auditory or visual hallucinations. Pt denied any thoughts to harm herself or anyone else. Pt felt safe and comfortable for D/C. The Pt was educated primarily by verbal means about his diagnoses and their manifestations in her life. The option for treatment including group individual therapy programming was offered to her and the use of medications with all their potential risks, benefits, and side-effects were discussed with the pt at length. Pt was given the opportunity to ask questions and she participated in the treatment and planning process. Pt felt ready and eager to be discharged from the from the 1A unit to home. Pt felt she was safe for this disposition. Pt was considered to be able to participate in informed consent and decision- making with respect to medical, legal and financial issues at the time of her discharge from the [facility] Pt denied any hx of HIV, Hep C or TBIs. Pt noted hx of seizures last seizure was 2 weeks ago. 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 5.Supportive therapy was provided 6.Pt encouraged to consider group or individual therapy 7.Pt was in agreement with treatment plan. 8.Pt was educated on the risks benefits and side effects of current medications. 9. Continue zoloft 50 mg PO QHS 10. Continue abilify 2 mg PO QAM Time spent discussing smoking cessation with patient: 3 to 10 minutes Does patient wish to continue nicotine replacement upon disc: No - Time Spent with Patient Total time spent providing and/or coordinating discharge services: Greater than 30 minutes Assessment and Plan - Patient/Caregiver Discharge Instructions Activity: resume usual activities as tolerated Diet: regular diet - Follow up Plan Follow up with: [facility] [Outside] - 04/23/18 2:00 pm (The above appointment is with Renita Nieto for mental health counseling services. Please arrive 10 minutes early to complete the check-in process. Please bring your insurance card (or HCAP award letter) and photo ID. If you are unable to keep this appointment, 24 hour business notice of cancellation is expected. If you miss your new patient appointment with any provider without providing appropriate notice, you cannot be re-scheduled for that service. The above appointment(s) reflects first availability. You may contact the office regularly to check for cancellations that may allow you to be seen sooner. The [facility] is the [facility] in [place], [place]. Please do not use GPS or mapping apps to locate the office, as they will take you to the wrong location. ) [facility] [Outside] - 04/03/18 8:30 am (The above appointment is with Chen for substance abuse assessment and counseling services. Please bring your photo ID and insurance acard to this appointment.) [facility] [Outside] - 04/29/18 10:00 am (The above appointment is with Dolores Roque for outpatient psychiatric assessment and medication management services. Please arrive 30 minutes early for first time psychiatry appointments, and 15 minutes early for follow-up psychiatry appointments. Please bring your photo ID (bring proof of address if you do not have an ID), insurance card and medication list. The above appointment(s) reflects first availability. You may contact the office regularly to check for cancellations that may allow you to be seen sooner. ) Functional capacity at discharge: independent ambulation Overall status at discharge: Stable Disposition: Home, Self-Care Quality - Multiple Antipsychotics Patient discharged on 2 or more antipsychotic medications: No - Justification Documentation of: Other justification (Pt is not on 2 antipsychotics) Procedures - Procedures Procedures: Medication Management, Crisis Stabilization, Supportive Therapy, Group Therapy, Psychoeducational Therapy
== END 2018-03-28 13:55 | disposition home or self-care (01) | DRG 751 ==
LOC: EMEROOARM 17:01 → 1ANU 20:24
PROVIDERS: ADMIT General Practice; ATTEND General Practice